=== PATIENT | male | born 1960 | race African-American/Black ===

== ENCOUNTER 2019-12-25 18:53 | Inpatient (IN) | payer OTHER, SELFPAY ==
--- NOTE | ~2019-12-25 | XR_ITS ---
EXAMINATION: XR abdomen NG/feed tube insert DATE: 12/26/2019 18:02 INDICATION: Nasogastric tube placement. TECHNIQUE: An upright view of the abdomen was obtained. COMPARISON: CT abdomen and pelvis 12/25/2019 FINDINGS: The lower abdomen is excluded. There are multiple dilated loops of small bowel. The colon i s decompressed. The nasogastric tube tip is in the stomach. Surgical clips in the right upper quadran t are likely from cholecystectomy. IMPRESSION: 1. Nasogastric tube tip in the stomach. 2. Small bowel obstruction. Reviewed, dictated and finalized at location A. ICAL NURSE
--- NOTE | ~2019-12-25 | CT_ITS ---
EXAMINATION: CT abdomen pelvis w con DATE: 12/25/2019 20:17 INDICATION: Small bowel obstruction. TECHNIQUE: Computed tomography (CT) of the abdomen and pelvis was performed with 100 mL Omnipaque 350 intravenous contrast. Automated exposure control and iterative reconstruction technique were employe d. The dose-length product was 1463.53 mGy-cm. COMPARISON: None. FINDINGS: The visualized portions of the lung bases demonstrate mild atelectasis. No pleural effusion . The heart size is normal. There are coronary artery calcifications. No pericardial effusion. The li jacinto and spleen are normal. There are changes of cholecystectomy. The pancreas and adrenal glands are normal. There is a 1.3 cm cyst in right kidney. There is a 4.4 cm mass in left kidney measuring soft tissue attenuation. There are multiple dilated and fluid-filled loops of small bowel with transition point in the distal ileum. The colon is decompressed. There are no pathologically enlarged lymph node s. There is no free intraperitoneal fluid. There is prominent fat in left inguinal canal that may be a hernia. There is moderate lumbar spondylosis. IMPRESSION: 1. Small bowel obstruction with transition point in the distal ileum. 2. 4.4 cm kidney mass, which may be a hemorrhagic cyst or a solid neoplasm. Abdomen CT without and wi th contrast is recommended. Reviewed, dictated and finalized at location A. NE PIPEFITTER HELPER IMPRESSION: 1. Small bowel obstruction with transition point in the distal ileum. 2. 4.4 cm kidney mass, which may be a hemorrhagic cyst or a solid neoplasm. Abd omen CT without and with contrast is recommended.
--- NOTE | ~2019-12-25 | CT_ITS ---
EXAMINATION: CT abdomen wo/w con DATE: 12/28/2019 14:30 INDICATION: Left kidney mass TECHNIQUE: Computed tomography (CT) of the abdomen was performed without intravenous contrast. CT of the abdomen was then performed with a total of 100 mL Omnipaque 350 intravenous contrast. The dose-le ngth product (DLP) was 1895.51 mGy-cm. Automated exposure control and iterative reconstruction techni que were employed. COMPARISON: 12/25/2019 FINDINGS: Minimal dependent atelectasis is present in the lung bases. The heart size is normal. The n asogastric tube is in the stomach. Enteric contrast material from recent small bowel follow-through i s seen in dilated loops of small bowel. The gallbladder is surgically absent. The liver, spleen, panc reas, and adrenal glands are normal. There is a 4.4 cm enhancing mass at the posterolateral aspect of the left mid kidney. A 12 mm lesion in the left kidney upper pole is too small to characterize but l ikely represents a cyst. There is a 1.2 cm cyst of the right kidney. No pathologically enlarged abdom inal lymph nodes are identified. There is no free intraperitoneal gas. There is moderate lumbar spond ylosis. IMPRESSION: 1. Enhancing 4.4 cm left kidney mass, consistent with solid neoplasm such as renal cell carcinoma. 2. Small bowel obstruction. Reviewed, dictated and finalized at location A. ING SYSTEM INSTALLER IMPRESSION: 1. Enhancing 4.4 cm left kidney mass, consistent with solid neoplasm such as re nal cell carcinoma. 2. Small bowel obstruction.
--- NOTE | ~2019-12-25 | XR_ITS ---
EXAMINATION: XR abdomen/kub 1V DATE: 12/28/2019 06:21 INDICATION: Small bowel obstruction. TECHNIQUE: A supine view of the abdomen on 2 radiographs was obtained. COMPARISON: Abdomen radiograph 12/26/2019, CT abdomen and pelvis 12/25/2019 FINDINGS: There are multiple dilated loops of small bowel containing oral contrast. The nasogastric t ube tip is in the distal stomach. Surgical clips in the right upper quadrant are likely from cholecys tectomy. There is a surgical clip in the pelvis. The colon is decompressed. IMPRESSION: 1. Small bowel obstruction. Reviewed, dictated and finalized at location A. ATIONAL THERAPY TEACHER IMPRESSION: 1. Small bowel obstruction.
--- NOTE | ~2019-12-25 | XR_ITS ---
EXAMINATION: XR sm bowel follow through DATE: 12/26/2019 13:56 INDICATION: Small bowel obstruction TECHNIQUE: Care Asst radiograph(s) of the abdomen was/were obtained. Water-soluble oral contrast was admi nistered, and sequential radiographs of the abdomen were obtained. Fluoroscopy was not performed. COMPARISON: CT from yesterday FINDINGS: Care Asst image demonstrates multiple dilated loops of small bowel. Contrast from earlier CT ex amination opacifies the urinary bladder. Contrast progresses to the area of the right lower quadrant after approximately two hours but is without significant progress at the four hour time point. IMPRESSION: 1. Small bowel obstruction. Reviewed, dictated and finalized at location A. ISITION MANAGER IMPRESSION: 1. Small bowel obstruction.
--- NOTE | ~2019-12-25 | XR_ITS ---
EXAMINATION: XR abdomen/kub 1V EXAM DATE: 12/29/2019 08:46 INDICATION: Small bowel obstruction follow-up. Left renal mass. TECHNIQUE: Frontal projection(s) of the abdomen for interpretation. Correlation is made to CT scan fr om yesterday. FINDINGS: Multiple loops of severely distended small bowel which are opacified with the contrast was administered on 12/26/2019. No contrast identified in the colon. Feeding tube in position. There are cholecystectomy clips. IMPRESSION: Small bowel obstruction. Reviewed, dictated and finalized at location A. LE END TENONER SETTER IMPRESSION: Small bowel obstruction.
[2019-12-25 18:55] VITALS: BP 104/80; PULSE 114; RESP 18; TEMP 36.1; O2SAT 97
[2019-12-25 19:40] VITALS: BP 118/82; PULSE 96; RESP 20; O2SAT 97
[2019-12-25 19:47] LABS: Basophils Percent Auto 0.2 % (0.2-1.2); Eosinophils Absolute Auto 0.1 K/mm3 (0-0.3); Eosinophils Percent Auto 1.1 % (0-4.4); Hematocrit 48.7 % (42.0-52.0); Hemoglobin 16.7 g/dL (14.0-18.0); Immature Granulocyte Absolute 0.03 K/mm3 (0.00-0.031); Immature Granulocyte Percent A 0.3 % (0-0.5); Lymphocytes Absolute Auto 1.46 K/mm3 (0.9-3.2); Lymphocytes Percent Auto 15.6 % (18.3-44.2); Mean Corpuscular HGB Conc 34.3 g/dl (32-36); Mean Corpuscular Hemoglobin 30.2 pg (26-34); Mean Corpuscular Volume 88.1 fl (80-100); Mean Platelet Volume 9.9 fl (7.4-10.4); Monocytes Absolute Auto 0.9 K/mm3 (0.1-0.6); Monocytes Percent Auto 9.9 % (2.6-8.5); Neutrophils Absolute Auto 6.8 K/mm3 (1.3-6.7); Neutrophils Percent Auto 72.9 % (45.5-73.1); Platelet Count Result 299 k/mm3 (150-375); Red Blood Count 5.53 M/mm3 (4.6-6.20); Red Cell Distribution Width 13.2 % (11.5-14.5); White Blood Count 9.4 K/mm3 (4.5-10.0)
[2019-12-25 19:58] LABS: Alanine Aminotransferase 12 U/L (4-50); Albumin Level 4.7 g/dL (3.5-5.1); Alkaline Phosphatase 133 U/L (38-126); Anion Gap 15 mmol/L (8-16); Aspartate Amino Transferase 24 U/L (17-59); Bilirubin,Total 2.3 mg/dL (0.2-1.3); Blood Urea Nitrogen 21 mg/dL (9-20); Calcium 10.5 mg/dL (8.4-10.2); Carbon Dioxide 27 mmol/L (22-30); Chloride 99 mmol/L (98-107); Estimated CRCL calculation 84 ml/min; Estimated Glomerular Filt Rate > 60; Glucose 176 mg/dL (75-110); Lipase 166 U/L (23-300); Potassium 4.1 mmol/L (3.4-5.0); Sodium 141 mmol/L (137-145)
--- NOTE | 2019-12-25 20:39 | ED.ABDPAIN ---
HPI - Abdominal Pain General Chief Complaint: Abdominal Pain Stated Complaint: stomach pain Time Seen by Provider: 12/25/19 19:09 Source: patient and family Mode of arrival: ambulatory Limitations: no limitations History of Present Illness HPI narrative: 59-year-old with a history of hypertension, diabetes, hyperlipidemia history of benign tumor resection from the abdomen [address] [facility] here with complaints of abdominal pain, nausea since this morning. Patient states that he did not have any bowel movement for past few days. He denies any fever or chills. No previous episodes of bowel obstruction MD elicited complaint: abdominal pain Pertinent past history: constipation Pain Consistency: constant Location: epigastric Severity: moderate Quality: cramping Migration to: no migration Relieving factors: nothing Related Data Home Medications Medication Instructions Recorded Confirmed blood sugar diagnostic #10 each 06/23/19 10/09/19 blood-glucose meter #1 each 06/23/19 10/09/19 empagliflozin 25 mg tablet 25 mg PO DAILY 06/23/19 10/09/19 insulin glargine U-300 conc 300 See Rx Instructions SUB-Q DAILY 10/09/19 10/09/19 unit/mL (1.5 mL) subcutaneous pen Allergies Allergy/AdvReac Type Severity Reaction Status Date / Time No Known Allergies Allergy Verified 12/25/19 18:55 Review of Systems Review of Systems: All systems reviewed & are unremarkable except as noted in HPI and below Constitutional: Constitutional: Reports no additional constitutional complaints Eyes: Eyes: Reports no additional eye complaints ENT: Reports system reviewed and no additional complaints, except as documented Cardiovascular: Cardiovascular: Reports no additional cardiovascular complaints Respiratory: Respiratory: Reports no additional respiratory complaints Gastrointestinal: Gastrointestinal: Reports as per HPI Musculoskeletal: Musculoskeletal: Reports no additional musculoskeletal complaints [facility] Past Medical History Medical History (Updated 12/25/19 @ 20:47 by Sal Turner MD) Bilateral leg edema BMI 39.0-39.9,adult Colon cancer screening Edema of right lower leg History of benign neoplasm of small intestine History of femur fracture History of fracture of right ankle Hyperlipidemia Hypertension Obesity Primary hypertension Prostate cancer screening Tumor cells, benign Type 2 diabetes mellitus Type 2 diabetes mellitus with hyperglycemia Surgical History Surgical History H/O facial fracture repair History of cholecystectomy Family History Family History Father Hypertension Other Diabetes mellitus Social History Social History Smoking status: Never smoker Second hand tobacco smoke exposure: No Alcohol intake: never Substance use: never Substance use type: does not use Gender identity (if verbalized by the patient): Male Spiritual care concerns: Yes (Mormonism.) Agree to blood products: Yes Exam Narrative: Exam Narrative: GENERAL: Well-appearing, , and in no acute distress. HEAD: Normocephalic, atraumatic. EYES: PERRLA and EOMI. NECK: Supple. CHEST: Clear to auscultation. No respiratory distress. HEART: Regular rate and rhythm. No murmur heard. Normal peripheral pulses. ABDOMEN: Midline surgical scar, distended, epigastric tenderness, sluggish bowel sounds EXTREMITIES: Normal range of motion. chronic edema of the right leg SKIN: Warm, dry, no rash. NEURO: No focal deficits. Alert and oriented x3. PSYCH: Normal mood and affect. Course Course Emergency Course: Inform patient about his lab work. He has no further episodes of nausea or vomiting. I discussed with Dr. Graf who recommended to admit to the hospitalist and they will be a consult. Vital Signs Vital signs: Vital Signs Temperature 36.1 C L
[2019-12-25 22:06] VITALS: BP 106/82; PULSE 110; RESP 20; O2SAT 95
--- NOTE | 2019-12-25 22:10 | PM.IMHP ---
H&P: HPI History of Present Illness Date/Time: 12/25/19 22:10 Chief complaint: SBO Narrative: This is a pleasant 59 year old Diabetic with known HTN and hyperlipidemia who presented to the hospital with a complaint of diffuse abdominal pain, distension, nausea, and vomiting over the past 2 days. He started to notice that he had abdominal pain, nausea, and vomiting after he ate some fried rice on Sunday evening. Since then he has had a difficult time keeping any food or fluids down and gets nauseated and vomits with any food intake. He denies any past history of bowel obstructions although his history is significant for an extensive previous bowel surgery of a large abd tumor removal [address] abd/Pelvis demonstrated a small bowel obstruction with transition point in the distal ileum. He last had nausea and vomiting earlier today but currently denies any nausea. He also denies any fever, chills, chest pain, shortness of breath, cough, headache, dysuria, hematuria, diarrhea or rectal bleeding. His last bowel movement was earlier today and was a small amount. ER provider has consulted General Surgery. No other complaints. Review of Systems Review of Systems: All systems reviewed & are unremarkable except as noted in HPI and below PMFSH Past Medical History Medical History Bilateral leg edema BMI 39.0-39.9,adult Colon cancer screening Edema of right lower leg History of benign neoplasm of small intestine History of femur fracture History of fracture of right ankle Hyperlipidemia Hypertension Obesity Primary hypertension Prostate cancer screening Surgical abdomen Tumor cells, benign Type 2 diabetes mellitus Type 2 diabetes mellitus with hyperglycemia Surgical History Surgical History H/O facial fracture repair History of ankle surgery History of cholecystectomy Family History Family History Father Hypertension Other Diabetes mellitus Social History Social History Smoking status: Never smoker Second hand tobacco smoke exposure: No Alcohol intake: never Substance use: never Substance use type: does not use Gender identity (if verbalized by the patient): Male Sexual Orientation (if Verbalized by the Patient): Straight or Heterosexual Spiritual care concerns: No Agree to blood products: Yes Meds Home Medications and Allergies Home Medications Medication Instructions Recorded Confirmed Type furosemide 20 mg tablet 20 mg PO QAM #90 tablet 03/21/19 12/25/19 Rx hydrochlorothiazide 25 mg tablet 25 mg PO DAILY #90 tablet 03/31/19 12/25/19 Rx losartan 100 mg tablet 100 mg PO DAILY #90 tablet 03/31/19 12/25/19 Rx atorvastatin 40 mg tablet 40 mg PO DAILY #90 tablet 04/23/19 12/25/19 Rx blood sugar diagnostic #10 each 06/23/19 12/25/19 History blood-glucose meter #1 each 06/23/19 12/25/19 History empagliflozin 25 mg tablet 25 mg PO DAILY 06/23/19 12/25/19 History insulin glargine U-300 conc 300 See Rx Instructions SUB-Q DAILY 10/09/19 12/25/19 History unit/mL (1.5 mL) subcutaneous pen pen needle, diabetic 31 gauge x #30 each 10/15/19 12/25/19 Rx / metoprolol tartrate 50 mg tablet 50 mg PO BID #180 tablet 10/28/19 12/25/19 Rx semaglutide 0.25 mg SUB-Q WEEKLY 90 Days #3 ml 11/10/19 12/25/19 Rx metformin 1,000 mg PO BID 12/25/19 12/25/19 History Allergies Allergy/AdvReac Type Severity Reaction Status Date / Time No Known Allergies Allergy Verified 12/26/19 00:18 Vital Signs Vital Signs - 24 hr 12/25/19 18:55 12/25/19 19:40 12/25/19 22:06 Temperature 36.1 C L Pulse Rate 114 H 96 110 H Respiratory Rate 18 20 20 Blood Pressure 104/80 118/82 106/82 Pulse Oximetry 97 97 95 Exam Const: General: cooperative, no acute distress, alert and awake
[2019-12-25 22:55] VITALS: BP 118/73; PULSE 113; RESP 16; TEMP 37.4; O2SAT 97
--- NOTE | 2019-12-25 22:59 | ADMGEN ---
This patient, Guru Jones, was admitted to 2 Medical Room 242-01. Patient/family oriented to hospital policies and general routines including ID bracelet, bed and alarms, visiting hours, pain management, procedures, bathroom and other care routines, personal items, smoking policy, room service/diet, and visiting hours. Information on how to activate the Rapid Response Team has been discussed. Patient/Family are encouraged to report perceived risks to care and to ask questions if they do not understand what they are told or what they should do.
[2019-12-25 23:11] VITALS: BMI 37.4
[2019-12-25] MEDS: LACTATED RINGERS 1,000 ML 125 ML IV CONT (23:22)
[2019-12-26] VITALS (9 sets, daily range): BP systolic 119–142; BP diastolic 69–82; PULSE 92–113; RESP 16–23; TEMP 36.2–37; O2SAT 94–100
[2019-12-26 00:07] LABS: Glucose Point of Care 142 (65-105)
[2019-12-26 05:45] LABS: Glucose Point of Care 135 (65-105)
[2019-12-26 06:12] LABS: Basophils Percent Auto 0.4 % (0.2-1.2); Eosinophils Absolute Auto 0.1 K/mm3 (0-0.3); Eosinophils Percent Auto 1.6 % (0-4.4); Hematocrit 47.5 % (42.0-52.0); Immature Granulocyte Absolute 0.02 K/mm3 (0.00-0.031); Immature Granulocyte Percent A 0.3 % (0-0.5); Lymphocytes Absolute Auto 1.79 K/mm3 (0.9-3.2); Lymphocytes Percent Auto 23.6 % (18.3-44.2); Mean Corpuscular HGB Conc 33.7 g/dl (32-36); Mean Corpuscular Hemoglobin 29.6 pg (26-34); Mean Platelet Volume 10.4 fl (7.4-10.4); Monocytes Percent Auto 12.9 % (2.6-8.5); Neutrophils Absolute Auto 4.6 K/mm3 (1.3-6.7); Neutrophils Percent Auto 61.2 % (45.5-73.1); Platelet Count Result 279 k/mm3 (150-375); Red Cell Distribution Width 13.3 % (11.5-14.5); White Blood Count 7.6 K/mm3 (4.5-10.0)
[2019-12-26 06:22] LABS: Bilirubin Indirect 2.3 mg/dL (0-1.1); Bilirubin,Total 2.2 mg/dL (0.2-1.3)
[2019-12-26 06:27] LABS: Anion Gap 9 mmol/L (8-16); Blood Urea Nitrogen 26 mg/dL (9-20); Calcium 10.1 mg/dL (8.4-10.2); Carbon Dioxide 32 mmol/L (22-30); Chloride 99 mmol/L (98-107); Estimated CRCL calculation 87 ml/min; Estimated Glomerular Filt Rate > 60; Glucose 129 mg/dL (75-110); Sodium 140 mmol/L (137-145)
[2019-12-26] MEDS: LACTATED RINGERS 1,000 ML 125 ML IV CONT ×2 (07:20→20:32)
--- NOTE | 2019-12-26 09:07 | PM.CNGS ---
Assessment and Plan Assessment and plan (1) SBO (small bowel obstruction): Code(s): K56.609 - Unspecified intestinal obstruction, unspecified as to partial versus complete obstruction Status: Acute Assessment and Plan: cont bowel rest, exam benign, will get SBS for further eval (2) Renal mass: Code(s): N28.89 - Other specified disorders of kidney and ureter Status: Acute Assessment and Plan: will likely need further imaging in the future (3) BMI 39.0-39.9,adult: Code(s): Z68.39 - Body mass index [BMI] 39.0-39.9, adult Status: Acute Assessment and Plan: dietary and lifestyle modifications (4) Type 2 diabetes mellitus with hyperglycemia: Qualifiers: Diabetes mellitus superintendent container terminal insulin use: with superintendent container terminal use Qualified Code(s): E11.65 - Type 2 diabetes mellitus with hyperglycemia; Z79.4 - terminal operator (current) use of insulin Code(s): E11.65 - Type 2 diabetes mellitus with hyperglycemia Status: Acute Assessment and Plan: management per primary team (5) Hypertension: Qualifiers: Hypertension type: unspecified Qualified Code(s): I10 - Essential (primary) hypertension Code(s): I10 - Essential (primary) hypertension Status: Chronic Assessment and Plan: stable, management per primary team History of Present Illness Consult details Consult date: 12/26/19 Reason for consult: abdominal pain Requesting physician: Alexandre Mariee MD Narrative: Pt is a 59 y/o M presenting c 3 d h/o crampy abd pain, N/V. Pt reports pain comes in waves and is worse after eating/drinking. Pt reports multiple bouts of N/V after eating but seems to be improved since admit. Pt reports he has had small bowel movt (last yest) but not normal for him. Pt reports very little flatus. Pt also c/o bloating, fullness. Pt reports previous colon resection for benign mass and cholecystectomy. Review of Systems Constitutional: Constitutional: Denies anorexia, Denies chills, Denies fatigue, Denies fever(s), Denies lethargy, Denies malaise, Reports poor appetite, Denies weakness, Denies weight gain and Denies weight loss Eyes: Eyes: Reports no additional eye complaints ENT: Reports system reviewed and no additional complaints, except as documented Cardiovascular: Cardiovascular: Reports no additional cardiovascular complaints Respiratory: Respiratory: Reports no additional respiratory complaints Gastrointestinal: Gastrointestinal: Reports abdominal pain, Reports belching, Reports bloating, Reports change in bowel habits, Reports change in stool character, Reports constipation, Reports GI cramping, Reports heartburn, Reports nausea and Reports vomiting Genitourinary: Genitourinary: Reports no additional male genitourinary complaints Musculoskeletal: Musculoskeletal: Reports no additional musculoskeletal complaints Integumentary/Breasts: Skin/Breast: Reports system reviewed and no additional complaints, except as docu Neurologic: Reports system reviewed and no additional complaints, except as documented Psychiatric: Psychiatric: Reports no additional psychiatric complaints Endocrine: Endocrine: Reports no additional endocrine complaints Hematologic/Lymphatic: Hematologic/Lymphatic: Reports no additional hematologic/lymphatic complaints Allergic/Immunologic: Allergic/Immunologic: Reports no additional allergic/immunologic complaints PMFSH Past Medical History Medical History Bilateral leg edema BMI 39.0-39.9,adult Colon cancer screening Edema of right lower leg History of benign neoplasm of small intestine History of femur fracture History of fracture of right ankle Hyperlipidemia Hypertension Obesity Primary hypertension Prostate cancer screening Surgical abdomen Tumor cells, benign Type 2 diabetes mellitus Type 2 diabetes mellitus with hyperglycemia Surgical History Surgical His
[2019-12-26 11:49] LABS: Glucose Point of Care 138 (65-105)
[2019-12-26] MEDS: ONDANSETRON INJ 4 MG/2 ML VIAL IV PUSH (12:00)
--- NOTE | 2019-12-26 16:16 | PM.IMPN ---
Progress Note: A&P Assessment and Plan (1) SBO (small bowel obstruction): Code(s): K56.609 - Unspecified intestinal obstruction, unspecified as to partial versus complete obstruction Status: Acute Assessment and Plan: admit to med surg, NPO, bowel rest, IV fluids. pain control as needed. antiemetics. continue conservatively management with NG tube to suction (2) Hyperbilirubinemia: Code(s): E80.6 - Other disorders of bilirubin metabolism Status: Acute Assessment and Plan: consukt to monitor lfts and bilirubin levels (3) Renal mass: Code(s): N28.89 - Other specified disorders of kidney and ureter Status: Acute Assessment and Plan: The patient will need a follow up CT abd/pelvis w/ contrast to evaluate this incidental renal mass that was found today. (4) Type 2 diabetes mellitus: Qualifiers: Diabetes mellitus mcc insulin use: without mcc use Diabetes mellitus complication status: without complication Qualified Code(s): E11.9 - Type 2 diabetes mellitus without complications Code(s): E11.9 - Type 2 diabetes mellitus without complications Status: Chronic Assessment and Plan: Accuchecks, SSI Coverage, hypoglycemic protocol. (5) Hypertension: Qualifiers: Hypertension type: unspecified Qualified Code(s): I10 - Essential (primary) hypertension Code(s): I10 - Essential (primary) hypertension Status: Chronic Assessment and Plan: stable. Monitor blood pressure (6) Hyperlipidemia: Qualifiers: Hyperlipidemia type: unspecified Qualified Code(s): E78.5 - Hyperlipidemia, unspecified Code(s): E78.5 - Hyperlipidemia, unspecified Status: Chronic Assessment and Plan: Resume statin therapy when the patient is eating again. Additional Plan Subjective Date/time seen: 12/26/19 16:16 Interval history: 59 year old Diabetic with known HTN and hyperlipidemia who presented to the hospital with a complaint of diffuse abdominal pain, distension, nausea, and vomiting over the past 2 days. Pt seen by surgery and had a small bowel follow through series today shows- SBO. Ct scan shows -Small bowel obstruction with transition point in the distal ileum. 2. 4.4 cm kidney mass, which may be a hemorrhagic cyst or a solid neoplasm Review of Systems Review of Systems: All systems reviewed & are unremarkable except as noted in HPI and below Exam Const: General: cooperative, no acute distress, alert and awake Nutritional Appearance: obese Orientation/consciousness: patient oriented x3 Cardio: Rate: regular rate Rhythm: regular rhythm Heart sounds: no murmurs GI: Inspection: distended Auscultation: absent bowel sounds Skin: General skin exam: normal color and no rashes or lesions noted Neuro: General: patient oriented x3 Cranial nerves: Yes CN's II-XII intact bilaterally and Yes Equal, round and reactive pupils present Speech: normal speech Motor exam (neuro): 5/5 motor strength present throughout Sensory Exam: normal sensation Extrem: General: normal to inspection and no edema Right lower extremity: lower leg (Chronic edema++ ) Psych: Mental Status: mental status grossly normal Affect: normal affect Objective Data Vital Signs Vital Signs: Vital Signs - 24 hr 12/25/19 18:55 12/25/19 19:40 12/25/19 22:06 Temperature 36.1 C L Pulse Rate 114 H 96 110 H Respiratory Rate 18 20 20 Blood Pressure 104/80 118/82 106/82 Pulse Oximetry 97 97 95 12/25/19 22:55 12/26/19 00:31 12/26/19 00:32 Temperature 37.4 C Pulse Rate 113 H 96 96 Respiratory Rate 16 Blood Pressure 118/73 Pulse Oximetry 97 96 96 12/26/19 02:00 12/26/19 05:47 12/26/19 08:25 Temperature 37.0 C 36.7 C Pulse Rate 92 92 Respiratory Rate 18 16 Blood Pressure 119/69 131/82 Pulse Oximetry 99 100 96 12/26/19 11:23 12/26/19 14:00 Temperature 36.8 C 36.6 C Pulse R
[2019-12-26 21:03] LABS: Glucose Point of Care 173 (65-105)
[2019-12-26 21:03] LABS: Glucose Point of Care 177 (65-105)
[2019-12-27] VITALS: BP 114/76; PULSE 84; RESP 20; TEMP 36.6; O2SAT 100
[2019-12-27 04:00] VITALS: BP 141/82; PULSE 95; RESP 20; TEMP 36.4; O2SAT 95
[2019-12-27] MEDS: LACTATED RINGERS 1,000 ML 125 ML IV CONT ×3 (05:30→21:52)
[2019-12-27 06:01] LABS: Glucose Point of Care 154 (65-105)
[2019-12-27 06:13] LABS: Hematocrit 47.6 % (42.0-52.0); Mean Corpuscular HGB Conc 33.6 g/dl (32-36); Mean Corpuscular Hemoglobin 29.2 pg (26-34); Mean Corpuscular Volume 86.9 fl (80-100); Mean Platelet Volume 10.4 fl (7.4-10.4); Platelet Count Result 310 k/mm3 (150-375); Red Blood Count 5.48 M/mm3 (4.6-6.20); Red Cell Distribution Width 13.2 % (11.5-14.5); White Blood Count 6.4 K/mm3 (4.5-10.0)
[2019-12-27 06:47] LABS: Anion Gap 12 mmol/L (8-16); Blood Urea Nitrogen 40 mg/dL (9-20); Calcium 10.2 mg/dL (8.4-10.2); Carbon Dioxide 33 mmol/L (22-30); Chloride 99 mmol/L (98-107); Estimated CRCL calculation 75 ml/min; Estimated Glomerular Filt Rate > 60; Glucose 153 mg/dL (75-110); Potassium 3.8 mmol/L (3.4-5.0); Sodium 144 mmol/L (137-145)
--- NOTE | 2019-12-27 09:20 | PM.PNGS ---
Progress Note: A&P Assessment and Plan (1) SBO (small bowel obstruction): Code(s): K56.609 - Unspecified intestinal obstruction, unspecified as to partial versus complete obstruction Status: Acute Assessment and Plan: will cont bowel rest, NG decompression, recheck AXR in am, encourage ambulation (2) Type 2 diabetes mellitus: Qualifiers: Diabetes mellitus correction insulin use: without roasterman use Diabetes mellitus complication status: without complication Qualified Code(s): E11.9 - Type 2 diabetes mellitus without complications Code(s): E11.9 - Type 2 diabetes mellitus without complications Status: Chronic Assessment and Plan: stable, mgmt per primary (3) Hypertension: Qualifiers: Hypertension type: unspecified Qualified Code(s): I10 - Essential (primary) hypertension Code(s): I10 - Essential (primary) hypertension Status: Chronic Assessment and Plan: stable, mgmt per primary Subjective Subjective Date/Time Seen: 12/27/19 09:20 feels better this am, no further N/V, still no bowel fxn Review of Systems Constitutional: Constitutional: Denies chills, Reports fatigue and Denies fever(s) Cardiovascular: Cardiovascular: Reports no additional cardiovascular complaints Respiratory: Respiratory: Reports no additional respiratory complaints Gastrointestinal: Gastrointestinal: Denies abdominal pain, Denies belching, Reports bloating, Reports constipation, Reports GI cramping, Reports heartburn, Reports nausea and Reports vomiting Exam Const: General: cooperative and no acute distress Resp: Effort & Inspection: normal respiratory effort Auscultation: clear to auscultation bilaterally Cardio: Jugular venous distension: no JVD Rate: regular rate Rhythm: regular rhythm GI: Inspection: normal to inspection, distended and incision GI Palp: Yes Soft to palpation, No Tenderness to palpation present (GI), No Guarding due to palpation present (GI) and No Rigid due to palpation Auscultation: Hypoactive bowel sounds present Other: sl dist, NT, hypoactive bs Objective Data Vital Signs Vital Signs: Vital Signs - 24 hr 12/26/19 11:23 12/26/19 14:00 12/26/19 19:25 Temperature 36.8 C 36.6 C 36.2 C L Pulse Rate 113 H 111 H 94 Respiratory Rate 23 H 21 H 17 Blood Pressure 142/82 H 123/74 133/82 Pulse Oximetry 97 95 97 12/26/19 20:00 12/27/19 00:00 12/27/19 04:00 Temperature 36.6 C 36.6 C 36.4 C Pulse Rate 102 H 84 95 Respiratory Rate 20 20 20 Blood Pressure 120/78 114/76 141/82 H Pulse Oximetry 94 100 95 Intake/Output Intake/Output: Intake & Output 12/24/19 12/25/19 12/26/19 12/27/19 23:59 23:59 23:59 23:59 Intake Total 2210 1000 Output Total 3125 2250 Balance -915 -1250 Meds/Results Medications: Active Medications Generic Name Dose Route Start Last Admin Trade Name Freq PRN Reason Stop Dose Admin Dextrose 12.5 gm 12/25/19 22:36 Dextrose 50% 25 Gm/50 Ml Syringe IV PUSH PRN PRN Hypoglycemia Protocol Glucagon 1 mg 12/25/19 22:36 Glucagon For Inj 1 Mg Vial IM PRN PRN Hypoglycemia Protocol Hydromorphone HCl 0.5 mg 12/25/19 21:10 Hydromorphone Hcl Inj (*Crx) 1 Mg/Ml Syr IV PUSH Q4H PRN Pain Rated 7-10 Lactated Ringer's 1,000 mls @ 125 mls/hr 12/25/19 21:10 12/27/19 05:30 Lr - Lactated Ringers Iv IV CONT 125 mls/hr .Q8H MACK Administration Dextrose 1,000 mls @ 100 mls/hr 12/25/19 22:36 Dextrose 5% 1,000 Ml IVPB PRN PRN Hypoglycemia Protocol Insulin Aspart 2 - 5 units 12/26/19 00:00 12/27/19 05:31 Insulin Aspart (*Bkc) 100 Units/Ml SUB-Q Not Given Q6HR MACK Protocol Ondansetron HCl 4 mg 12/25/19 21:10 12/26/19 12:00 Ondansetron Inj 4 Mg/2 Ml Vial IV PUSH 4 mg Q4H PRN Administration Nausea Radiology Results: ITS Impressions Abdomen/Pelvis CT 12/25/19 20:19 IMPRESSION: 1. Small bowel
[2019-12-27 10:00] VITALS: BP 154/87; PULSE 98; RESP 14; TEMP 36.4; O2SAT 99
--- NOTE | 2019-12-27 11:36 | PM.IMPN ---
Progress Note: A&P Assessment and Plan (1) SBO (small bowel obstruction): Code(s): K56.609 - Unspecified intestinal obstruction, unspecified as to partial versus complete obstruction Status: Acute Assessment and Plan: admit to med surg, NPO, bowel rest, IV fluids. pain control as needed. antiemetics. continue conservatively management with NG tube and bowel rest. encourage ambulation. if conservative treatments do not help pt will need to have surgery. surgery team rounding on patient. (2) Hyperbilirubinemia: Code(s): E80.6 - Other disorders of bilirubin metabolism Status: Acute Assessment and Plan: continue to monitor lfts and bilirubin levels (3) Renal mass: Code(s): N28.89 - Other specified disorders of kidney and ureter Status: Acute Assessment and Plan: The patient will need a follow up CT abd/pelvis w/ contrast to evaluate this incidental renal mass that was found, consult urology here. (4) Type 2 diabetes mellitus: Qualifiers: Diabetes mellitus alf insulin use: without exterminator termite use Diabetes mellitus complication status: without complication Qualified Code(s): E11.9 - Type 2 diabetes mellitus without complications Code(s): E11.9 - Type 2 diabetes mellitus without complications Status: Chronic Assessment and Plan: Accuchecks, SSI Coverage, hypoglycemic protocol. pt is npo (5) Hypertension: Qualifiers: Hypertension type: unspecified Qualified Code(s): I10 - Essential (primary) hypertension Code(s): I10 - Essential (primary) hypertension Status: Chronic Assessment and Plan: stable. Monitor blood pressure (6) Hyperlipidemia: Qualifiers: Hyperlipidemia type: unspecified Qualified Code(s): E78.5 - Hyperlipidemia, unspecified Code(s): E78.5 - Hyperlipidemia, unspecified Status: Chronic Assessment and Plan: Resume statin therapy when the patient is eating again. Additional Plan Subjective Date/time seen: 12/27/19 11:36 Interval history: 59 year old Diabetic with known HTN and hyperlipidemia who presented to the hospital with a complaint of diffuse abdominal pain, distension, nausea, and vomiting over the past 2 days. Pt seen by surgery and had a small bowel follow through series today shows- SBO. Ct scan shows -Small bowel obstruction with transition point in the distal ileum. 2. 4.4 cm kidney mass, which may be a hemorrhagic cyst or a solid neoplasm. kub today shows sbo. Review of Systems Review of Systems: All systems reviewed & are unremarkable except as noted in HPI and below Exam Const: General: cooperative, no acute distress, alert and awake Nutritional Appearance: obese Orientation/consciousness: patient oriented x3 HENMT: Head: normal to inspection General nose exam: Normal external nose present Face and sinus: normal facial exam Mouth: Yes Normal oral and palatal mucosa present and Yes oropharynx normal Eyes: Pupils: Equal, round and reactive pupils present EOM: EOMs intact bilaterally Neck: Neck: supple and no JVD Thyroid: thyroid normal Lymphatic: lymphadenopathy not noted Resp: Effort & Inspection: normal respiratory effort Auscultation: clear to auscultation bilaterally Cardio: Rate: regular rate Rhythm: regular rhythm Heart sounds: no murmurs GI: Inspection: distended Auscultation: absent bowel sounds Skin: General skin exam: normal color and no rashes or lesions noted Neuro: General: patient oriented x3 Cranial nerves: Yes CN's II-XII intact bilaterally and Yes Equal, round and reactive pupils present Speech: normal speech Motor exam (neuro): 5/5 motor strength present throughout Sensory Exam: normal sensation Extrem: General: normal to inspection and no edema Right lower extremity: lower leg (Chronic edema++ ) Psych: Mental Status: mental status grossly normal Affect: normal affect Objecti
[2019-12-27 11:47] LABS: Glucose Point of Care 139 (65-105)
[2019-12-27 14:00] VITALS: BP 135/82; PULSE 90; RESP 14; TEMP 36.7; O2SAT 100
[2019-12-27 18:00] VITALS: BP 124/90; PULSE 119; RESP 14; TEMP 36.6; O2SAT 98
[2019-12-27 18:33] LABS: Glucose Point of Care 163 (65-105)
[2019-12-27 20:00] VITALS: BP 140/78; PULSE 90; RESP 20; TEMP 36.4; O2SAT 99
[2019-12-27 22:06] LABS: Glucose Point of Care 151 (65-105)
[2019-12-28] VITALS (7 sets, daily range): BP systolic 133–152; BP diastolic 76–99; PULSE 67–116; RESP 17–22; TEMP 36.1–37.1; O2SAT 95–100
[2019-12-28] MEDS: LACTATED RINGERS 1,000 ML 125 ML IV CONT ×2 (05:30→13:45)
[2019-12-28 06:15] LABS: Basophils Percent Auto 0.7 % (0.2-1.2); Eosinophils Absolute Auto 0.2 K/mm3 (0-0.3); Eosinophils Percent Auto 2.8 % (0-4.4); Hematocrit 48.6 % (42.0-52.0); Hemoglobin 15.9 g/dL (14.0-18.0); Immature Granulocyte Absolute 0.01 K/mm3 (0.00-0.031); Immature Granulocyte Percent A 0.2 % (0-0.5); Lymphocytes Absolute Auto 2.03 K/mm3 (0.9-3.2); Lymphocytes Percent Auto 36.1 % (18.3-44.2); Mean Corpuscular HGB Conc 32.7 g/dl (32-36); Mean Corpuscular Hemoglobin 29.4 pg (26-34); Mean Platelet Volume 10.5 fl (7.4-10.4); Monocytes Absolute Auto 0.8 K/mm3 (0.1-0.6); Monocytes Percent Auto 13.5 % (2.6-8.5); Neutrophils Absolute Auto 2.6 K/mm3 (1.3-6.7); Neutrophils Percent Auto 46.7 % (45.5-73.1); Platelet Count Result 271 k/mm3 (150-375); White Blood Count 5.6 K/mm3 (4.5-10.0)
[2019-12-28 06:26] LABS: Alanine Aminotransferase 13 U/L (4-50); Albumin Level 4.2 g/dL (3.5-5.1); Alkaline Phosphatase 116 U/L (38-126); Anion Gap 10.99999 mmol/L (8-16); Aspartate Amino Transferase 27 U/L (17-59); Bilirubin,Total 1.6 mg/dL (0.2-1.3); Blood Urea Nitrogen 36 mg/dL (9-20); Calcium 10.1 mg/dL (8.4-10.2); Carbon Dioxide > 40 mmol/L (22-30); Chloride 98 mmol/L (98-107); Estimated CRCL calculation 80 ml/min; Estimated Glomerular Filt Rate > 60; Glucose 141 mg/dL (75-110); Potassium 3.7 mmol/L (3.4-5.0); Sodium 149 mmol/L (137-145)
[2019-12-28 07:21] LABS: Glucose Point of Care 144 (65-105)
--- NOTE | 2019-12-28 11:19 | PM.PNGS ---
Progress Note: A&P Assessment and Plan (1) SBO (small bowel obstruction): Code(s): K56.609 - Unspecified intestinal obstruction, unspecified as to partial versus complete obstruction Status: Acute Assessment and Plan: plan for OR in am if no improvement, cont NG decompression, bowel rest for now (2) Renal mass: Code(s): N28.89 - Other specified disorders of kidney and ureter Status: Acute Assessment and Plan: will get urology consult for further eval Subjective Subjective Date/Time Seen: 12/28/19 11:19 feels ok but still no bowel fxn, pt denies pain, N/V Review of Systems Constitutional: Constitutional: Denies anorexia, Denies chills, Denies fever(s), Denies headache(s), Denies weakness, Denies weight gain and Denies weight loss Cardiovascular: Cardiovascular: Reports no additional cardiovascular complaints Respiratory: Respiratory: Reports no additional respiratory complaints Gastrointestinal: Gastrointestinal: Denies abdominal pain, Denies belching, Reports bloating, Reports constipation, Denies nausea and Denies vomiting Exam Const: General: cooperative, comfortable and no acute distress Neck: Neck: normal visual inspection, full ROM and no lymphadenopathy Resp: Effort & Inspection: normal respiratory effort Auscultation: clear to auscultation bilaterally Cardio: Jugular venous distension: no JVD Rate: regular rate Rhythm: regular rhythm GI: Inspection: normal to inspection, distended and incision GI Palp: No abdominal tenderness, Yes Soft to palpation, No Tenderness to palpation present (GI) and No Guarding due to palpation present (GI) Objective Data Vital Signs Vital Signs: Vital Signs - 24 hr 12/27/19 14:00 12/27/19 18:00 12/27/19 20:00 Temperature 36.7 C 36.6 C 36.4 C L Pulse Rate 90 119 H 90 Respiratory Rate 14 14 20 Blood Pressure 135/82 124/90 140/78 Pulse Oximetry 100 98 99 12/28/19 00:00 12/28/19 04:00 12/28/19 09:16 Temperature 36.6 C 36.5 C 36.1 C L Pulse Rate 83 78 103 H Respiratory Rate 20 18 22 H Blood Pressure 133/82 135/76 150/97 H Pulse Oximetry 100 96 98 Intake/Output Intake/Output: Intake & Output 12/25/19 12/26/19 12/27/19 11/08/20 23:59 23:59 23:59 23:59 Intake Total 2210 3000 1000 Output Total 3209 2423 [id number] [employer] [facility] [phone] Meds/Results Medications: Active Medications Generic Name Dose Route Start Last Admin Trade Name Freq PRN Reason Stop Dose Admin Dextrose 12.5 gm 12/25/19 22:36 Dextrose 50% 25 Gm/50 Ml Syringe IV PUSH PRN PRN Hypoglycemia Protocol Glucagon 1 mg 12/25/19 22:36 Glucagon For Inj 1 Mg Vial IM PRN PRN Hypoglycemia Protocol Hydromorphone HCl 0.5 mg 12/25/19 21:10 Hydromorphone Hcl Inj (*Crx) 1 Mg/Ml Syr IV PUSH Q4H PRN Pain Rated 7-10 Lactated Ringer's 1,000 mls @ 125 mls/hr 12/25/19 21:10 12/28/19 05:30 Lr - Lactated Ringers Iv IV CONT 125 mls/hr .Q8H MACK Administration Dextrose 1,000 mls @ 100 mls/hr 12/25/19 22:36 Dextrose 5% 1,000 Ml IVPB PRN PRN Hypoglycemia Protocol Insulin Aspart 2 - 5 units 12/26/19 00:00 12/28/19 05:39 Insulin Aspart (*Bkc) 100 Units/Ml SUB-Q Not Given Q6HR MACK Protocol Ondansetron HCl 4 mg 12/25/19 21:10 12/26/19 12:00 Ondansetron Inj 4 Mg/2 Ml Vial IV PUSH 4 mg Q4H PRN Administration Nausea Radiology Results: ITS Impressions Abdomen/Pelvis CT 12/25/19 20:19 IMPRESSION: 1. Small bowel obstruction with transition point in the distal ileum. 2. 4.4 cm kidney mass, which may be a hemorrhagic cyst or a solid neoplasm. Abdomen CT without and with contrast is recommended. Small Bowel X-Ray 12/26/19 14:04 IMPRESSION: 1. Small bowel obstruction. Abdomen X-Ray 12/28/19 07:29 IMPRESSION: 1. Small bowel obstruction. Labs Labs: Laboratory Results - last 24 hr 12/27/19 12/27/19 12/27/19 11:42 17:43 21:49
--- NOTE | 2019-12-28 11:29 | WPDANESEPP ---
Anes - Eval Pre Procedure Procedure: Exploratory Laparotomy (Small Bowel Obstruction) Date/Time: 12/28/19 11:29 Surgeon: Homar Preop Diagnosis: Small Bowel Obstruction Pre Op Diagnosis: SBO Patient Data Age: 59 Gender: M Height: 6 ft 2 in Weight: 132.3 kg Last Vital Signs Temp 36.1 C L 12/28/19 09:16 Pulse 103 H 12/28/19 09:16 Resp 22 H 12/28/19 09:16 BP 150/97 H 12/28/19 09:16 Pulse Ox 98 12/28/19 09:16 Allergies Allergy/AdvReac Type Severity Reaction Status Date / Time No Known Allergies Allergy Verified 12/26/19 00:18 Home Medications Medication Instructions Recorded Confirmed Type furosemide 20 mg tablet 20 mg PO QAM #90 tablet 03/21/19 12/25/19 Rx hydrochlorothiazide 25 mg tablet 25 mg PO DAILY #90 tablet 03/31/19 12/25/19 Rx losartan 100 mg tablet 100 mg PO DAILY #90 tablet 03/31/19 12/25/19 Rx atorvastatin 40 mg tablet 40 mg PO DAILY #90 tablet 04/23/19 12/25/19 Rx blood sugar diagnostic #10 each 06/23/19 12/25/19 History blood-glucose meter #1 each 06/23/19 12/25/19 History empagliflozin 25 mg tablet 25 mg PO DAILY 06/23/19 12/25/19 History insulin glargine U-300 conc 300 See Rx Instructions SUB-Q DAILY 10/09/19 12/25/19 History unit/mL (1.5 mL) subcutaneous pen pen needle, diabetic 31 gauge x #30 each 10/15/19 12/25/19 Rx 07/04 metoprolol tartrate 50 mg tablet 50 mg PO BID #180 tablet 10/28/19 12/25/19 Rx semaglutide 0.25 mg SUB-Q WEEKLY 90 Days #3 ml 11/10/19 12/25/19 Rx metformin 1,000 mg PO BID 12/25/19 12/25/19 History Laboratory Tests 12/27/19 12/27/19 12/27/19 11:42 17:43 21:49 WBC RBC Hgb Hct MCV MCH MCHC RDW Plt Count MPV Immature Gran % (Auto) Neut % (Auto) Lymph % (Auto) [place] % (Auto) Eos % (Auto) Baso % (Auto) Lymph # (Auto) [place] # (Auto) Eos # (Auto) Baso # (Auto) Abs Immat Gran (auto) Absolute Neuts (auto) Absolute Nucleated RBC Nucleated RBC % Sodium Potassium Chloride Carbon Dioxide Anion Gap BUN Creatinine Estim Creat Clear Calc Estimated GFR Glucose POC Capillary Glucose 139 mg/dl H mg/dl 163 mg/dl H mg/dl 151 mg/dl H mg/dl (65-105) (65-105) (65-105) Calcium Total Bilirubin AST ALT Alkaline Phosphatase Total Protein Albumin 12/28/19 12/28/19 12/28/19 04:58 04:58 05:36 WBC 5.6 K/mm3 K/mm3 (4.5-10.0) RBC 5.40 M/mm3 M/mm3 (4.6-6.20) Hgb 15.9 g/dL g/dL (14.0-18.0) Hct 48.6 % % (42.0-52.0) MCV 90.0 fl fl (80-100) MCH 29.4 pg pg (26-34) MCHC 32.7 g/dl g/dl (32-36) RDW 13.0 % % (11.5-14.5) Plt Count 271 k/mm3 k/mm3 (150-375) MPV 10.5 fl H fl (7.4-10.4) Immature Gran % (Auto) 0.2 % % (0-0.5) Neut % (Auto) 46.7 % % (45.5-73.1) Lymph % (Auto) 36.1 % % (18.3-44.2) [place] % (Auto) 13.5 % H % (2.6-8.5) Eos % (Auto) 2.8 % % (0-4.4) Baso % (Auto) 0.7 % % (0.2-1.2) Lymph # (Auto) 2.03 K/mm3 K/mm3 (0.9-3.2) [place] # (Auto) 0.8 K/mm3 H K/mm3 (0.1-0.6) Eos # (Auto) 0.2 K/mm3 K/mm3 (0-0.3) Baso # (Auto) 0.0 K/mm3 K/mm3 (0.0-0.1) Abs Immat Gran (auto) 0.01 K/mm3 K/mm3 (0.00-0.031) Absolute Neuts (auto) 2.6 K/mm3 K/mm3 (1.3-6.7) Absolute Nucleated RBC 0.0 K/mm3 K/mm3 (0.0-0.012) Nucleated RBC % 0.0 % % (0.0-0.2) Sodium 149 mmol/L H mmol/L (137-145) Potassium 3.7 mmol/L
[2019-12-28 11:57] LABS: Glucose Point of Care 154 (65-105)
--- NOTE | 2019-12-28 12:24 | PM.IMPN ---
Progress Note: A&P Assessment and Plan (1) SBO (small bowel obstruction): Code(s): K56.609 - Unspecified intestinal obstruction, unspecified as to partial versus complete obstruction Status: Acute Assessment and Plan: NPO, bowel rest, IV fluids. No pain , antiemetics. continue conservatively management with NG tube and bowel rest. encourage ambulation. if conservative treatments do not help he might need surgery tomorrow. (2) Renal mass: Code(s): N28.89 - Other specified disorders of kidney and ureter Status: Acute Assessment and Plan: The patient will need a follow up CT abd/pelvis w/ contrast to evaluate this incidental renal mass that was found, urology has been consulted. (3) Type 2 diabetes mellitus: Qualifiers: Diabetes mellitus skilled nursing insulin use: without skilled nursing use Diabetes mellitus complication status: without complication Qualified Code(s): E11.9 - Type 2 diabetes mellitus without complications Code(s): E11.9 - Type 2 diabetes mellitus without complications Status: Chronic Assessment and Plan: Accuchecks, SSI Coverage, hypoglycemic protocol. pt is npo (4) Hypertension: Qualifiers: Hypertension type: unspecified Qualified Code(s): I10 - Essential (primary) hypertension Code(s): I10 - Essential (primary) hypertension Status: Chronic Assessment and Plan: stable. Monitor blood pressure (5) Hyperlipidemia: Qualifiers: Hyperlipidemia type: unspecified Qualified Code(s): E78.5 - Hyperlipidemia, unspecified Code(s): E78.5 - Hyperlipidemia, unspecified Status: Chronic Additional Plan Subjective Date/time seen: Denies abdominal pain but still not passing gas , no BM. 12/28/19 12:24 Review of Systems Review of Systems: All systems reviewed & are unremarkable except as noted in HPI and below Exam Const: General: cooperative, no acute distress, alert and awake Nutritional Appearance: obese Orientation/consciousness: patient oriented x3 HENMT: Head: normal to inspection General nose exam: Normal external nose present Face and sinus: normal facial exam Mouth: Yes Normal oral and palatal mucosa present and Yes oropharynx normal Eyes: Pupils: Equal, round and reactive pupils present EOM: EOMs intact bilaterally Neck: Neck: supple and no JVD Lymphatic: lymphadenopathy not noted Resp: Effort & Inspection: normal respiratory effort Auscultation: clear to auscultation bilaterally Cardio: Rate: regular rate Rhythm: regular rhythm Heart sounds: no murmurs GI: Inspection: distended Auscultation: absent bowel sounds Rectal Exam: deferred Skin: General skin exam: normal color and no rashes or lesions noted Neuro: General: patient oriented x3 Cranial nerves: Yes Equal, round and reactive pupils present Speech: normal speech Motor exam (neuro): 5/5 motor strength present throughout Sensory Exam: normal sensation Extrem: General: normal to inspection and no edema Right lower extremity: lower leg (Chronic edema++ ) Psych: Mental Status: mental status grossly normal Affect: normal affect Objective Data Vital Signs Vital Signs: Vital Signs - 24 hr 12/27/19 14:00 12/27/19 18:00 12/27/19 20:00 Temperature 98.1 F 97.9 F 97.5 F L Pulse Rate 90 119 H 90 Respiratory Rate 14 14 20 Blood Pressure 135/82 124/90 140/78 Pulse Oximetry 100 98 99 12/28/19 00:00 12/28/19 04:00 12/28/19 09:16 Temperature 97.9 F 97.7 F 97 F L Pulse Rate 83 78 103 H Respiratory Rate 20 18 22 H Blood Pressure 133/82 135/76 150/97 H Pulse Oximetry 100 96 98 Intake/Output Intake/Output: Intake & Output 12/25/19 12/26/19 12/27/19 12/28/19 23:59 23:59 23:59 23:59 Intake Total 2210 3000 1000 Output Total 5958 8625 1999 Balance -915 -1275 -1000 Meds/Results Medications: Active Medications Generic Name Dose Route Start Last Admin Trade Name Freq PRN Reason Stop Dos
--- NOTE | 2019-12-28 13:22 | WPDURCON ---
Assessment and Plan Assessment and plan (1) Renal mass: Code(s): N28.89 - Other specified disorders of kidney and ureter Status: Acute Assessment and Plan: 59 yo AAM admitted with SBO found incidentally to have 4 cm left renal mass. Needs renal mass protocol CT for further evaluation. I have ordered this for today. Will have Dr. Hall see him tomorrow to discuss results. If solid renal mass, the mass looks amenable to a partial nephrectomy. Has nl LFTs. Will need CXR if mass appears suspicious for malignancy. Urology Consult Note HPI Date Seen: 12/28/19 Requesting Physician: Alexandre Mariee MD Primary Care Provider: Ceci Lira MD Consult Narrative Narrative: Guru Jones is a 59 year old male admitted with SBO incidentally found to have a 4 cm left renal mass. It is unclear if this is a hemorrhagic cyst vs solid renal neoplasm. Pt denies any fevers, chills, dysuria, hematuria, or flank pain. SBO has not resolved despite NG decompression and bowel rest. May require ex lap tomorrow. He has a remote history of resection of benign abdominal mass 20 yrs ago. No urologic history Review of Systems Constitutional: Constitutional: Reports fatigue and Reports poor appetite Eyes: Eyes: Reports no additional eye complaints ENT: Reports Normal hearing present Cardiovascular: Cardiovascular: Reports pedal edema Respiratory: Respiratory: Reports no additional respiratory complaints Gastrointestinal: Gastrointestinal: Reports abdominal pain, Reports bloating and Reports vomiting Genitourinary: Genitourinary: Reports no additional male genitourinary complaints Musculoskeletal: Musculoskeletal: Reports no additional musculoskeletal complaints Neurologic: Reports Normal hearing present Psychiatric: Psychiatric: Reports no additional psychiatric complaints Endocrine: Endocrine: Reports no additional endocrine complaints Hematologic/Lymphatic: Hematologic/Lymphatic: Reports no additional hematologic/lymphatic complaints Allergic/Immunologic: Allergic/Immunologic: Reports no additional allergic/immunologic complaints [facility] Past Medical History Medical History Bilateral leg edema BMI 39.0-39.9,adult Colon cancer screening Edema of right lower leg History of benign neoplasm of small intestine History of femur fracture History of fracture of right ankle Hyperlipidemia Hypertension Obesity Primary hypertension Prostate cancer screening Surgical abdomen Tumor cells, benign Type 2 diabetes mellitus Type 2 diabetes mellitus with hyperglycemia Surgical History Surgical History H/O facial fracture repair History of ankle surgery History of cholecystectomy Family History Family History Father Hypertension Other Diabetes mellitus Social History Social History Smoking status: Never smoker Second hand tobacco smoke exposure: No Alcohol intake: never Substance use: never Substance use type: does not use Gender identity (if verbalized by the patient): Male Sexual Orientation (if Verbalized by the Patient): Straight or Heterosexual Spiritual care concerns: No Agree to blood products: Yes Meds Home Medications and Allergies Home Medications Medication Instructions Recorded Confirmed Type furosemide 20 mg tablet 20 mg PO QAM #90 tablet 03/21/19 12/25/19 Rx hydrochlorothiazide 25 mg tablet 25 mg PO DAILY #90 tablet 03/31/19 12/25/19 Rx losartan 100 mg tablet 100 mg PO DAILY #90 tablet 03/31/19 12/25/19 Rx atorvastatin 40 mg tablet 40 mg PO DAILY #90 tablet 04/23/19 12/25/19 Rx blood sugar diagnostic #10 each 06/23/19 12/25/19 History blood-glucose meter #1 each 06/23/19 12/25/19 History empagliflozin 25 mg tablet 25 mg PO DAILY 06/23/19
[2019-12-28 16:36] LABS: Glucose Point of Care 135 (65-105)
[2019-12-29] VITALS (15 sets, daily range): BP systolic 126–166; BP diastolic 77–96; PULSE 72–91; RESP 14–22; TEMP 35.6–36.8; O2SAT 93–100; BMI 37.4
[2019-12-29] MEDS: LACTATED RINGERS 1,000 ML 125 ML IV CONT ×3 (00:03→23:57)
[2019-12-29 00:07] LABS: Glucose Point of Care 121 (65-105)
[2019-12-29 05:38] LABS: Basophils Percent Auto 0.7 % (0.2-1.2); Eosinophils Absolute Auto 0.2 K/mm3 (0-0.3); Hematocrit 45.9 % (42.0-52.0); Hemoglobin 14.9 g/dL (14.0-18.0); Immature Granulocyte Absolute 0.02 K/mm3 (0.00-0.031); Immature Granulocyte Percent A 0.3 % (0-0.5); Lymphocytes Absolute Auto 2.06 K/mm3 (0.9-3.2); Lymphocytes Percent Auto 34.2 % (18.3-44.2); Mean Corpuscular HGB Conc 32.5 g/dl (32-36); Mean Corpuscular Hemoglobin 28.9 pg (26-34); Mean Platelet Volume 10.3 fl (7.4-10.4); Monocytes Absolute Auto 0.7 K/mm3 (0.1-0.6); Monocytes Percent Auto 11.6 % (2.6-8.5); Neutrophils Percent Auto 49.2 % (45.5-73.1); Platelet Count Result 253 k/mm3 (150-375); Red Blood Count 5.16 M/mm3 (4.6-6.20); Red Cell Distribution Width 12.6 % (11.5-14.5)
[2019-12-29 05:51] LABS: Anion Gap 5.99999 mmol/L (8-16); Blood Urea Nitrogen 26 mg/dL (9-20); Calcium 9.9 mg/dL (8.4-10.2); Carbon Dioxide > 40 mmol/L (22-30); Chloride 99 mmol/L (98-107); Estimated CRCL calculation 94 ml/min; Estimated Glomerular Filt Rate > 60; Glucose 130 mg/dL (75-110); Potassium 3.5 mmol/L (3.4-5.0); Sodium 145 mmol/L (137-145)
[2019-12-29 07:34] LABS: Glucose Point of Care 125 (65-105)
[2019-12-29] MEDS: LACTATED RINGERS 1,000 ML 30 ML IV CONT ×3 (10:25→14:47)
--- NOTE | 2019-12-29 11:37 | WPDHPUPDATE1 ---
History and Physical Update Update Date/Time: 12/29/19 11:37 History and Physical has been reviewed, including an updated exam of the patient. There are NO changes in the patient's condition. Risks, benefits, and alternatives have been discussed and questions answered. Patient agrees to proceed with procedure. No improvement on abdominal Xray this am and after long discussion with patient decision to proceed with exploratory laparatomy.
--- NOTE | 2019-12-29 11:37 | WPDANESEPPF ---
Anes - Initial Pre Proc Eval Procedure: Operation Date: 12/29/19 13:00 Proposed Procedures p Exploratory Laparotomy for Bowel Obstruction - Elissa Graf MD Date/Time: 12/29/19 11:37 Surgeon: Alexandre Mariee MD Pre Op Diagnosis: SBO Patient Data Age: 59 Gender: M Height: 6 ft 2 in Weight: 132.3 kg Last Vital Signs Temp 36.4 C 12/29/19 10:36 Pulse 74 12/29/19 10:36 Resp 16 12/29/19 10:36 BP 166/80 H 12/29/19 10:36 Pulse Ox 100 12/29/19 10:36 Allergies Allergy/AdvReac Type Severity Reaction Status Date / Time No Known Allergies Allergy Verified 12/26/19 00:18 Home Medications Medication Instructions Recorded Confirmed Type furosemide 20 mg tablet 20 mg PO QAM #90 tablet 03/21/19 12/25/19 Rx hydrochlorothiazide 25 mg tablet 25 mg PO DAILY #90 tablet 03/31/19 12/25/19 Rx losartan 100 mg tablet 100 mg PO DAILY #90 tablet 03/31/19 12/25/19 Rx atorvastatin 40 mg tablet 40 mg PO DAILY #90 tablet 04/23/19 12/25/19 Rx blood sugar diagnostic #10 each 06/23/19 12/25/19 History blood-glucose meter #1 each 06/23/19 12/25/19 History empagliflozin 25 mg tablet 25 mg PO DAILY 06/23/19 12/25/19 History insulin glargine U-300 conc 300 See Rx Instructions SUB-Q DAILY 10/09/19 12/25/19 History unit/mL (1.5 mL) subcutaneous pen pen needle, diabetic 31 gauge x #30 each 10/15/19 12/25/19 Rx / metoprolol tartrate 50 mg tablet 50 mg PO BID #180 tablet 10/28/19 12/25/19 Rx semaglutide 0.25 mg SUB-Q WEEKLY 90 Days #3 ml 11/10/19 12/25/19 Rx metformin 1,000 mg PO BID 12/25/19 12/25/19 History Laboratory Tests 12/28/19 12/28/19 12/29/19 11:53 16:33 00:03 WBC RBC Hgb Hct MCV MCH MCHC RDW Plt Count MPV Immature Gran % (Auto) Neut % (Auto) Lymph % (Auto) [place] % (Auto) Eos % (Auto) Baso % (Auto) Lymph # (Auto) [place] # (Auto) Eos # (Auto) Baso # (Auto) Abs Immat Gran (auto) Absolute Neuts (auto) Absolute Nucleated RBC Nucleated RBC % Sodium Potassium Chloride Carbon Dioxide Anion Gap BUN Creatinine Estim Creat Clear Calc Estimated GFR Glucose POC Capillary Glucose 154 mg/dl H mg/dl 135 mg/dl H mg/dl 121 mg/dl H mg/dl (65-105) (65-105) (65-105) Calcium 12/29/19 12/29/19 12/29/19 04:48 04:48 05:51 WBC 6.0 K/mm3 K/mm3 (4.5-10.0) RBC 5.16 M/mm3 M/mm3 (4.6-6.20) Hgb 14.9 g/dL g/dL (14.0-18.0) Hct 45.9 % % (42.0-52.0) MCV 89.0 fl fl (80-100) MCH 28.9 pg pg (26-34) MCHC 32.5 g/dl g/dl (32-36) RDW 12.6 % % (11.5-14.5) Plt Count 253 k/mm3 k/mm3 (150-375) MPV 10.3 fl fl (7.4-10.4) Immature Gran % (Auto) 0.3 % % (0-0.5) Neut % (Auto) 49.2 % % (45.5-73.1) Lymph % (Auto) 34.2 % % (18.3-44.2) [place] % (Auto) 11.6 % H % (2.6-8.5) Eos % (Auto) 4.0 % % (0-4.4) Baso % (Auto) 0.7 % % (0.2-1.2) Lymph # (Auto) 2.06 K/mm3 K/mm3 (0.9-3.2) [place] # (Auto) 0.7 K/mm3 H K/mm3 (0.1-0.6) Eos # (Auto) 0.2 K/mm3 K/mm3 (0-0.3) Baso # (Auto) 0.0 K/mm3 K/mm3 (0.0-0.1) Abs Immat Gran (auto) 0.02 K/mm3 K/mm3 (0.00-0.031) Absolute Neuts (auto) 3.0 K/mm3 K/mm3 (1.3-6.7) Absolute Nucleated RBC 0.0 K/mm3 K/mm3 (0.0-0.012) Nucleated RBC % 0.0 % % (0.0-0.2) Sodium 145 mmol/L mmol/L (137-145) Potassium 3.5 mmol/L mmol/L (3.4-5.0) Chloride 99 mmol/L mmol/L (98-107) Carbon Dioxide >
[2019-12-29] MEDS: ceFAZolin 3 GM/D5W 100 ML 100 ML IVPB (12:06)
[2019-12-29 14:06] LABS: Glucose Point of Care 170 (65-105)
[2019-12-29] MEDS: fentaNYL CITRATE INJ (*CRX) 100 MCG/2 ML VIAL 25 MCG IV PUSH ×7 (14:08→15:22)
--- NOTE | 2019-12-29 14:09 | P.OP_ITS ---
Procedure Note - Detailed Date of procedure: 12/29/19 Pre-op diagnosis: SBO Post-op diagnosis: same Procedure performed: Exploratory laparotomy with extensive lysis of adhesions approximately 45 minutes, reduction of internal hernia Description of procedure: The patient was taken to the operating room placed in the supine position. After adequate induction of general anesthesia, the patient was prepped and draped normal sterile fashion. Time-out was then done to verify the patient's identity, as well as the procedure being performed. Began by making a generous midline incision from the umbilicus through his old midline incision. This incision was taken down into the peritoneal cavity. Upon entering the peritoneal cavity, it was noted the patient had extensive adhesions to the anterior midline and left abdomen. The patient also had a large amount of interloop adhesions. The patient also had massively dilated small intestine. An extensive lysis of adhesions was undertaken and was able to free the entirety of the small bowel after will took about 45 minutes. There is also a dense adhesion in the mid pelvis, and the small bowel in this area was completely twisted around this adhesion causing almost a close loop obstr uction/internal hernia. Once this was freed up, I was able to note decompressed terminal ileum going into the cecum. I was able to run the entirety of the small bowel and no other pathology was seen. I then was able to visualize the entirety of the colon and no other pathology was noted. Given this I copiously irrigated the abdomen. The fascia was closed with 1. Looped PDS suture. The skin was closed with skin kiel. The patient tolerated the procedure well and was extubated in the operating room postoperatively. He will be transferred to the recovery room in stable condition. Implants: none Anesthesia: GETA Surgeon: Elissa Graf MD Estimated blood loss (mL): 100 Drains: No Packing: No Pathology: none sent Complications: No immediate complications Condition: stable Disposition: PACU Findings: extensive adhesions, internal rotation caused by a band in the mid pelvic area causing an internal hernia
[2019-12-29] MEDS: HYDROmorphone HCL INJ (*CRX) 1 MG/ML SYR 0.5 MG IV PUSH (15:40)
--- NOTE | 2019-12-29 16:31 | PM.IMPN ---
Progress Note: A&P Assessment and Plan (1) SBO (small bowel obstruction): Code(s): K56.609 - Unspecified intestinal obstruction, unspecified as to partial versus complete obstruction Status: Acute Assessment and Plan: Pt had an exploratory laparotomy with adhesiolysis today, no major complications in the immediate post operative period. (2) Renal mass: Code(s): N28.89 - Other specified disorders of kidney and ureter Status: Acute Assessment and Plan: Ct with renal mass protocol shows an enhancing 4.4 cm mass most likely renal cell carcinoma, he might require a partial nephrectomy. Appreciate urology input. (3) Type 2 diabetes mellitus: Qualifiers: Diabetes mellitus fpc insulin use: without fpc use Diabetes mellitus complication status: without complication Qualified Code(s): E11.9 - Type 2 diabetes mellitus without complications Code(s): E11.9 - Type 2 diabetes mellitus without complications Status: Chronic Assessment and Plan: Accuchecks, SSI Coverage, hypoglycemic protocol. pt is npo (4) Hypertension: Qualifiers: Hypertension type: unspecified Qualified Code(s): I10 - Essential (primary) hypertension Code(s): I10 - Essential (primary) hypertension Status: Chronic Assessment and Plan: stable. Monitor blood pressure (5) Hyperlipidemia: Qualifiers: Hyperlipidemia type: unspecified Qualified Code(s): E78.5 - Hyperlipidemia, unspecified Code(s): E78.5 - Hyperlipidemia, unspecified Status: Chronic Additional Plan Subjective Date/time seen: Having abdominal pain , he just came back from the OR where he had an exploratory laparatomy. 12/29/19 16:31 Exam Const: General: cooperative, no acute distress, alert and awake Nutritional Appearance: obese Orientation/consciousness: patient oriented x3 HENMT: Head: normal to inspection General nose exam: Normal external nose present Face and sinus: normal facial exam Mouth: Yes Normal oral and palatal mucosa present and Yes oropharynx normal Eyes: Pupils: Equal, round and reactive pupils present EOM: EOMs intact bilaterally Neck: Neck: supple and no JVD Lymphatic: lymphadenopathy not noted Resp: Effort & Inspection: normal respiratory effort Auscultation: clear to auscultation bilaterally Cardio: Rate: regular rate Rhythm: regular rhythm Heart sounds: no murmurs GI: Inspection: distended Other: Diffuse tenderness, no guarding. Surgical dressings without evident discharge. Skin: General skin exam: normal color and no rashes or lesions noted Neuro: General: patient oriented x3 Cranial nerves: Yes Equal, round and reactive pupils present Speech: normal speech Motor exam (neuro): 5/5 motor strength present throughout Sensory Exam: normal sensation Extrem: General: normal to inspection and no edema Right lower extremity: lower leg (Chronic edema++ ) Psych: Mental Status: mental status grossly normal Affect: normal affect Objective Data Vital Signs Vital Signs: Vital Signs - 24 hr 12/28/19 18:00 12/28/19 20:00 12/28/19 21:33 Temperature 97.9 F 97.8 F Pulse Rate 116 H 67 67 Respiratory Rate 19 18 18 Blood Pressure 152/99 H 138/82 Pulse Oximetry 97 97 97 12/29/19 02:00 12/29/19 06:00 12/29/19 10:36 Temperature 98.3 F 98.2 F 97.6 F Pulse Rate 83 72 74 Respiratory Rate 16 14 16 Blood Pressure 145/79 H 142/88 H 166/80 H Pulse Oximetry 95 98 100 12/29/19 13:50 12/29/19 14:05 12/29/19 14:20 Temperature 97.6 F Pulse Rate 79 73 78 Respiratory Rate 16 19 16 Blood Pressure 152/96 H 146/95 H 153/93 H Pulse Oximetry 100 100 100 12/29/19 14:35 12/29/19 14:50 12/29/19 15:05 Temperature Pulse Rate 88 88 89 Respiratory Rate 18 18 22 H Blood Pressure 143/95 H 140/84 137/86 Pulse Oximetry 98 98 94 12/29/19 15:20 12/29/19 15:50 12/29/19 16:05 Temperature 96.1 F L 96.3 F L Pulse Rate
--- NOTE | 2019-12-29 17:49 | WPDUROPN2 ---
Progress Note: A&P Assessment and Plan (1) Hyperbilirubinemia: Code(s): E80.6 - Other disorders of bilirubin metabolism Status: Acute (2) Renal mass: Code(s): N28.89 - Other specified disorders of kidney and ureter Status: Acute Assessment and Plan: CT-abd/pelvis findings c/w left renal cell ca. -> discussed with pt. this evening. Should be amenable to robotic partial nephrectomy once he's recovered. Subjective Subjective Date/Time Seen: 12/29/19 17:49 Awake, recovering from x-lap earlier today. Review of Systems Cardiovascular: Cardiovascular: Denies chest pain, Denies lightheadedness, Denies palpitations and Denies dyspnea Respiratory: Respiratory: Denies dyspnea Gastrointestinal: Gastrointestinal: Denies diarrhea, Denies nausea and Denies vomiting Genitourinary: Genitourinary: Denies hematuria and Denies dysuria Endocrine: Endocrine: Denies palpitations Exam Const: General: no acute distress Resp: Effort & Inspection: normal respiratory effort GI: Inspection: non-distended GI Palp: No abdominal tenderness and No Guarding due to palpation present (GI) Auscultation: normal bowel sounds Objective Data Vital Signs Vital Signs: Vital Signs - 24 hr 12/28/19 18:00 12/28/19 20:00 12/28/19 21:33 Temperature 97.9 F 97.8 F Pulse Rate 116 H 67 67 Respiratory Rate 19 18 18 Blood Pressure 152/99 H 138/82 Pulse Oximetry 97 97 97 12/29/19 02:00 12/29/19 06:00 12/29/19 10:36 Temperature 98.3 F 98.2 F 97.6 F Pulse Rate 83 72 74 Respiratory Rate 16 14 16 Blood Pressure 145/79 H 142/88 H 166/80 H Pulse Oximetry 95 98 100 12/29/19 13:50 12/29/19 14:05 12/29/19 14:20 Temperature 97.6 F Pulse Rate 79 73 78 Respiratory Rate 16 19 16 Blood Pressure 152/96 H 146/95 H 153/93 H Pulse Oximetry 100 100 100 12/29/19 14:35 12/29/19 14:50 12/29/19 15:05 Temperature Pulse Rate 88 88 89 Respiratory Rate 18 18 22 H Blood Pressure 143/95 H 140/84 137/86 Pulse Oximetry 98 98 94 12/29/19 15:20 12/29/19 15:50 12/29/19 16:05 Temperature 96.1 F L 96.3 F L Pulse Rate 88 91 89 Respiratory Rate 21 H 18 18 Blood Pressure 135/82 126/77 134/79 Pulse Oximetry 94 93 94 12/29/19 16:35 Temperature 96.9 F L Pulse Rate 88 Respiratory Rate Blood Pressure 143/86 H Pulse Oximetry 97 Intake/Output Intake/Output: Intake & Output 12/26/19 12/27/19 12/28/19 12/29/19 23:59 23:59 23:59 23:59 Intake Total 2210 3000 3200 1900 Output Total 3125 3505 8301 750 Balance -776 -7090 -871 1150 Meds/Results Medications: Active Medications Generic Name Dose Route Start Last Admin Trade Name Freq PRN Reason Stop Dose Admin Dextrose 12.5 gm 12/25/19 22:36 Dextrose 50% 25 Gm/50 Ml Syringe IV PUSH PRN PRN Hypoglycemia Protocol Glucagon 1 mg 12/25/19 22:36 Glucagon For Inj 1 Mg Vial IM PRN PRN Hypoglycemia Protocol Hydromorphone HCl 0.5 mg 12/29/19 17:34 Hydromorphone Hcl Inj (*Crx) 1 Mg/Ml Syr IV PUSH Q2H PRN Pain Rated 4-6 Hydromorphone HCl 1 mg 12/29/19 17:33 Hydromorphone Hcl Inj (*Crx) 1 Mg/Ml Syr IV PUSH Q2H PRN Pain Rated 7-10 Lactated Ringer's 1,000 mls @ 125 mls/hr 12/25/19 21:10 12/29/19 08:12 Lr - Lactated Ringers Iv IV CONT 125 mls/hr .Q8H MACK Administration Dextrose 1,000 mls @ 100 mls/hr 12/25/19 22:36 Dextrose 5% 1,000 Ml IVPB PRN PRN Hypoglycemia Protocol Acetaminophen 1,000 mg in 100 mls @ 400 mls/hr 12/29/19 18:00 Ofirmev 1,000 Mg Ivpb IVPB 12/30/19 18:01 Q6HR MACK Insulin Aspart 2 - 5 units 12/26/19 00:00 12/29/19 15:44 Insulin Aspart (*Bkc) 100 Units/Ml SUB-Q Not Given Q6HR MACK Protocol Ondansetron HCl 4 mg 12/25/19 21:10 12/26/19 12:00 Ondansetron Inj 4 Mg/2 Ml Vial IV PUSH 4 mg Q4H PRN Administration Nausea Radiology Results: ITS Impressions Abdomen/Pelvis CT 12/25/19 20:19 IMPRESSION:
[2019-12-29] MEDS: HYDROmorphone HCL INJ (*CRX) 1 MG/ML SYR IV PUSH ×2 (17:51→20:33)
[2019-12-29 18:06] LABS: Glucose Point of Care 182 (65-105)
[2019-12-30] VITALS (7 sets, daily range): BP systolic 127–152; BP diastolic 61–98; PULSE 60–96; RESP 14–22; TEMP 36.3–37.3; O2SAT 97–98
[2019-12-30 00:18] LABS: Glucose Point of Care 160 (65-105)
[2019-12-30] MEDS: HYDROmorphone HCL INJ (*CRX) 1 MG/ML SYR IV PUSH (04:21)
[2019-12-30 05:53] LABS: Basophils Percent Auto 0.3 % (0.2-1.2); Eosinophils Absolute Auto 0.1 K/mm3 (0-0.3); Eosinophils Percent Auto 0.6 % (0-4.4); Hematocrit 48.3 % (42.0-52.0); Immature Granulocyte Absolute 0.02 K/mm3 (0.00-0.031); Immature Granulocyte Percent A 0.2 % (0-0.5); Lymphocytes Absolute Auto 1.59 K/mm3 (0.9-3.2); Lymphocytes Percent Auto 17.1 % (18.3-44.2); Mean Corpuscular HGB Conc 33.1 g/dl (32-36); Mean Corpuscular Hemoglobin 29.7 pg (26-34); Mean Corpuscular Volume 89.6 fl (80-100); Mean Platelet Volume 10.4 fl (7.4-10.4); Monocytes Absolute Auto 0.9 K/mm3 (0.1-0.6); Monocytes Percent Auto 10.1 % (2.6-8.5); Neutrophils Absolute Auto 6.7 K/mm3 (1.3-6.7); Neutrophils Percent Auto 71.7 % (45.5-73.1); Platelet Count Result 253 k/mm3 (150-375); Red Blood Count 5.39 M/mm3 (4.6-6.20); Red Cell Distribution Width 12.8 % (11.5-14.5); White Blood Count 9.3 K/mm3 (4.5-10.0)
[2019-12-30 06:14] LABS: Anion Gap 8 mmol/L (8-16); Blood Urea Nitrogen 29 mg/dL (9-20); Calcium 8.9 mg/dL (8.4-10.2); Carbon Dioxide 34 mmol/L (22-30); Chloride 101 mmol/L (98-107); Estimated CRCL calculation 87 ml/min; Estimated Glomerular Filt Rate > 60; Glucose 172 mg/dL (75-110); Potassium 4.1 mmol/L (3.4-5.0); Sodium 143 mmol/L (137-145)
[2019-12-30] MEDS: LACTATED RINGERS 1,000 ML 125 ML IV CONT ×3 (06:18→23:49)
--- NOTE | 2019-12-30 06:59 | P.PNAN_ITS ---
Anes - Prog Note Post-Op Date/Time: 12/30/19 06:59 Cardiovascular status: normal Respiratory status: normal Airway patency: baseline Mental status: baseline Post-Op hydration status: normal Vital Signs: Last Vital Signs Temp 36.7 C 12/30/19 06:02 Pulse 60 12/30/19 06:02 Resp 22 H 12/30/19 06:02 BP 148/61 H 12/30/19 06:02 Pulse Ox 98 12/30/19 06:02 Pain Score (VAS): 3 I/O: Intake & Output 12/29/19 12/29/19 12/30/19 15:59 23:59 07:59 Intake Total 1850 1100 1100 Output Total 500 100 900 Balance 1350 1000 200 Laboratory Tests 12/30/19 05:04 12/30/19 05:04 12/29/19 12/29/19 12/29/19 05:51 14:03 17:56 WBC RBC Hgb Hct MCV MCH MCHC RDW Plt Count MPV Immature Gran % (Auto) Neut % (Auto) Lymph % (Auto) [place] % (Auto) Eos % (Auto) Baso % (Auto) Lymph # (Auto) [place] # (Auto) Eos # (Auto) Baso # (Auto) Abs Immat Gran (auto) Absolute Neuts (auto) Absolute Nucleated RBC Nucleated RBC % Sodium Potassium Chloride Carbon Dioxide Anion Gap BUN Creatinine Estim Creat Clear Calc Estimated GFR Glucose POC Capillary Glucose 125 H 170 H 182 H Calcium 12/29/19 12/30/19 12/30/19 23:57 05:04 05:04 WBC 9.3 RBC 5.39 Hgb 16.0 Hct 48.3 MCV 89.6 MCH 29.7 MCHC 33.1 RDW 12.8 Plt Count 253 MPV 10.4 Immature Gran % (Auto) 0.2 Neut % (Auto) 71.7 Lymph % (Auto) 17.1 L [place] % (Auto) 10.1 H Eos % (Auto) 0.6 Baso % (Auto) 0.3 Lymph # (Auto) 1.59 [place] # (Auto) 0.9 H Eos # (Auto) 0.1 Baso # (Auto) 0.0 Abs Immat Gran (auto) 0.02 Absolute Neuts (auto) 6.7 Absolute Nucleated RBC 0.0 Nucleated RBC % 0.0 Sodium 143 Potassium 4.1 Chloride 101 Carbon Dioxide 34 H Anion Gap 8 BUN 29 H Creatinine 1.20 Estim Creat Clear Calc 87 Estimated GFR > 60 Glucose 172 H POC Capillary Glucose 160 H Calcium 8.9 Post-procedural complaints: none Patient Feedback: Patient satisfied with anesthetic care.
--- NOTE | 2019-12-30 07:10 | PM.IMPN ---
Progress Note: A&P Assessment and Plan (1) Renal mass: Code(s): N28.89 - Other specified disorders of kidney and ureter Status: Acute Assessment and Plan: -Urology evaluated and will follow-up outpatient (2) Hyperbilirubinemia: Code(s): E80.6 - Other disorders of bilirubin metabolism Status: Acute Assessment and Plan: will watch (3) SBO (small bowel obstruction): Code(s): K56.609 - Unspecified intestinal obstruction, unspecified as to partial versus complete obstruction Status: Acute Assessment and Plan: - postop day 1 ex lap and adhesiolysis. surgeon Dr. Graf. - molina catheter being removed today - NG tube in place, awaiting bowel movements or gas - patient to PT/OT, patient has good attitude about walking and his rehab - pain control: Tylenol, dialudid - nausea: Zofran (4) BMI 39.0-39.9,adult: Code(s): Z68.39 - Body mass index [BMI] 39.0-39.9, adult Status: Acute (5) Type 2 diabetes mellitus: Qualifiers: Diabetes mellitus ferry terminal agent insulin use: without ferry terminal agent use Diabetes mellitus complication status: without complication Qualified Code(s): E11.9 - Type 2 diabetes mellitus without complications Code(s): E11.9 - Type 2 diabetes mellitus without complications Status: Chronic Assessment and Plan: - continue low-dose sliding scale insulin while NPO - home Jardiance, metformin, Lantus, ozempic (6) Hyperlipidemia: Qualifiers: Hyperlipidemia type: unspecified Qualified Code(s): E78.5 - Hyperlipidemia, unspecified Code(s): E78.5 - Hyperlipidemia, unspecified Status: Chronic Assessment and Plan: holding statin while NPO (7) Hypertension: Qualifiers: Hypertension type: unspecified Qualified Code(s): I10 - Essential (primary) hypertension Code(s): I10 - Essential (primary) hypertension Status: Chronic Assessment and Plan: holding p.o. antihypertensives, will watch Subjective Date/time seen: 12/30/19 07:10Patient exhibits. Postop day 1. Ex lap and adhesiolysis by Dr. Graf. Urology will do L partial nephrectomy of renal cell carcinoma in a few weeks /months once stable. Molina catheter removed today. He has new complaints today. Has a good attitude about his rehab would like to start walking soon. Lab stable, vitals stable. He has not passed gas yet. NG tube to suction. Patient denies fever, chills, nausea, vomiting , abdominal pain. Review of Systems Review of Systems: All systems reviewed & are unremarkable except as noted in HPI and below Exam Narrative: Exam Narrative: - GENERAL: Well-nourished male in no acute distress. - EYES: EOMI. Anicteric. - HENT: Moist mucous membranes. No scleral icterus. NG tube with bilious output dissection - LUNGS: Clear to auscultation bilaterally, no wheezing, rhonchi, or rales. - CARDIOVASCULAR: Regular rate and rhythm. No murmur. No JVD. - ABDOMEN: Soft, appropriate tenderness postsurgical,dressing clean/dry /intact, hypoactive bowel sounds. - EXTREMITIES: right lower extremity chronic swelling, extremities externally rotated. Peripheral pulses 2+. Her lower extremity old surgical scars. Non-tender. - NEUROLOGIC: No focal neurological deficits. CN II-XII grossly intact. - PSYCHIATRIC: Awake, Alert and oriented x 3. Appropriate mood and affect. - SKIN: No rashes or lesions. Warm. - LYMPH: No cervical lymphadenopathy. Objective Data Vital Signs Vital Signs: Vital Signs - 24 hr 12/29/19 10:36 12/29/19 13:50 12/29/19 14:05 Temperature 36.4 C 36.4 C Pulse Rate 74 79 73 Respiratory Rate 16 16 19 Blood Pressure 166/80 H 152/96 H 146/95 H Pulse Oximetry 100 100 100 12/29/19 14:20 12/29/19 14:35 12/29/19 14:50 Temperature Pulse Rate 78 88 88 Respiratory Rate 16 18 18 Blood Pressure 153/93 H 143/95 H 140/84 Pulse Oximetry 100 98 98 12/29/19 15:05 12/29/19 15:20 12/29/19 15:50 Temperature
[2019-12-30 07:27] LABS: Glucose Point of Care 162 (65-105)
--- NOTE | 2019-12-30 10:12 | PM.PNGS ---
Progress Note: A&P Assessment and Plan (1) SBO (small bowel obstruction): Code(s): K56.609 - Unspecified intestinal obstruction, unspecified as to partial versus complete obstruction Status: Acute Assessment and Plan: Continue NG tube decompression and bowel rest, await return of bowel function. Remove Bain catheter. Encouraged increased activity and sitting up in the chair today if tolerated. (2) Renal mass: Code(s): N28.89 - Other specified disorders of kidney and ureter Status: Acute Assessment and Plan: Urology consult noted and appreciated. Additional Plan Discussed patient's plan of care with Dr. Graf. Subjective Subjective Date/Time Seen: 12/30/19 09:00 Post Op day: 1 (Ex lap with adhesiolysis) Patient reports: feels better, no flatus and no bowel movement Interval history: Patient feeling well this morning. Reports having some abdominal pain that improved with pain medication last night after surgery, but very little soreness this morning. He denies nausea. Denies flatus or BM. No other complaints at this time. Review of Systems Review of Systems: All systems reviewed & are unremarkable except as noted in HPI and below Constitutional: Constitutional: Reports no additional constitutional complaints, Denies chills and Denies fever(s) Cardiovascular: Cardiovascular: Reports no additional cardiovascular complaints, Denies chest pain, Denies chest pain at rest and Denies pedal edema Respiratory: Respiratory: Reports no additional respiratory complaints, Denies cough, Denies dyspnea and Denies dyspnea on exertion Gastrointestinal: Gastrointestinal: Reports as per HPI and Reports no additional gastrointestinal complaints Genitourinary: Comments: Bain in place. Patient requesting this to be removed. Neurologic: Denies confusion and Denies dizziness Exam Const: General: comfortable, no acute distress, alert and awake Orientation/consciousness: patient oriented x3 Resp: Effort & Inspection: normal respiratory effort and able to speak in complete sentences Auscultation: clear to auscultation bilaterally Cardio: Rate: regular rate Rhythm: regular rhythm GI: Inspection: incision (midline dressing clean/dry/intact) and other (mildly distended) GI Palp: Yes Soft to palpation, Yes Tenderness to palpation present (GI) (diffusely tender, worse near incision) and No Guarding due to palpation present (GI) Auscultation: Hypoactive bowel sounds present Urinary Catheter: Urinary Catheter: patent and draining and urine clear Neuro: General: patient oriented x3 and moves all extremities Cranial nerves: Yes CN's II-XII intact bilaterally Speech: normal speech Extrem: General: no calf tenderness and no edema Psych: Mental Status: mental status grossly normal Attitude: cooperative Thought process: Normal thought process present Thought content: Yes Normal thought content present Objective Data Vital Signs Vital Signs: Vital Signs - 24 hr 12/29/19 10:36 12/29/19 13:50 12/29/19 14:05 Temperature 97.6 F 97.6 F Pulse Rate 74 79 73 Respiratory Rate 16 16 19 Blood Pressure 166/80 H 152/96 H 146/95 H Pulse Oximetry 100 100 100 12/29/19 14:20 12/29/19 14:35 12/29/19 14:50 Temperature Pulse Rate 78 88 88 Respiratory Rate 16 18 18 Blood Pressure 153/93 H 143/95 H 140/84 Pulse Oximetry 100 98 98 12/29/19 15:05 12/29/19 15:20 12/29/19 15:50 Temperature 96.1 F L Pulse Rate 89 88 91 Respiratory Rate 22 H 21 H 18 Blood Pressure 137/86 135/82 126/77 Pulse Oximetry 94 94 93 12/29/19 16:05 12/29/19 16:35 12/29/19 17:35 Temperature 96.3 F L 96.9 F L 97.6 F Pulse Rate 89 88 87 Respiratory Rate 18 16 Blood Pressure 134/79 143/86 H 131/85 Pulse Oximetry 94 97 98 12/29/19 20:00 12/30/19 00:00 12/30/19 04:00 Temperature 97.6 F 97.7 F 99.1 F Pulse Rate 83 87 89 Respiratory Rate 20 20 20 Blood Pressure 135/82 136/98 H 127/97 H Pulse Oximetry 97 98 97 12/30/19
[2019-12-30 11:38] LABS: Glucose Point of Care 172 (65-105)
[2019-12-30 17:26] LABS: Glucose Point of Care 178 (65-105)
[2019-12-30 22:59] LABS: Glucose Point of Care 183 (65-105)
[2019-12-31 00:28] LABS: Glucose Point of Care 168 (65-105)
[2019-12-31 02:00] VITALS: BP 132/81; PULSE 93; RESP 20; TEMP 36.8; O2SAT 92
[2019-12-31 05:27] LABS: Basophils Percent Auto 0.4 % (0.2-1.2); Eosinophils Absolute Auto 0.4 K/mm3 (0-0.3); Eosinophils Percent Auto 3.9 % (0-4.4); Hematocrit 44.2 % (42.0-52.0); Hemoglobin 14.6 g/dL (14.0-18.0); Immature Granulocyte Absolute 0.04 K/mm3 (0.00-0.031); Immature Granulocyte Percent A 0.4 % (0-0.5); Lymphocytes Percent Auto 18.6 % (18.3-44.2); Mean Corpuscular Hemoglobin 29.4 pg (26-34); Mean Corpuscular Volume 88.9 fl (80-100); Mean Platelet Volume 10.4 fl (7.4-10.4); Monocytes Absolute Auto 0.8 K/mm3 (0.1-0.6); Monocytes Percent Auto 8.3 % (2.6-8.5); Neutrophils Absolute Auto 6.2 K/mm3 (1.3-6.7); Neutrophils Percent Auto 68.4 % (45.5-73.1); Platelet Count Result 204 k/mm3 (150-375); Red Blood Count 4.97 M/mm3 (4.6-6.20); Red Cell Distribution Width 12.7 % (11.5-14.5); White Blood Count 9.1 K/mm3 (4.5-10.0)
[2019-12-31 05:43] LABS: Anion Gap 8 mmol/L (8-16); Blood Urea Nitrogen 20 mg/dL (9-20); Calcium 9.2 mg/dL (8.4-10.2); Carbon Dioxide 35 mmol/L (22-30); Chloride 101 mmol/L (98-107); Estimated CRCL calculation 103 ml/min; Estimated Glomerular Filt Rate > 60; Glucose 169 mg/dL (75-110); Potassium 3.7 mmol/L (3.4-5.0); Sodium 144 mmol/L (137-145)
[2019-12-31 05:58] VITALS: BP 136/82; PULSE 93; RESP 20; TEMP 36.7; O2SAT 95
[2019-12-31 06:38] LABS: Glucose Point of Care 172 (65-105)
[2019-12-31] MEDS: LACTATED RINGERS 1,000 ML 125 ML IV CONT ×2 (08:23→20:12)
--- NOTE | 2019-12-31 09:11 | PM.IMPN ---
Progress Note: A&P Assessment and Plan (1) Renal mass: Code(s): N28.89 - Other specified disorders of kidney and ureter Status: Acute Assessment and Plan: -Urology evaluated and will follow-up outpatient for left partial nephrectomy in the future (2) SBO (small bowel obstruction): Code(s): K56.609 - Unspecified intestinal obstruction, unspecified as to partial versus complete obstruction Status: Acute Assessment and Plan: - postop day 2 ex lap and adhesiolysis. surgeon Dr. Graf. - molina removed yesterday, patient urinating on his own with no problems - NG tube in place, still awaiting bowel movements or gas - patient has good attitude about walking and getting his bowels moving - pain control: Tylenol, dialudid, patient does not have abdominal pain and understands to minimize use of opiates to help bowels move - nausea: Zofran (3) BMI 39.0-39.9,adult: Code(s): Z68.39 - Body mass index [BMI] 39.0-39.9, adult Status: Acute (4) Type 2 diabetes mellitus: Qualifiers: Diabetes mellitus complication status: without complication Diabetes mellitus mcc insulin use: without intermediate designer use Qualified Code(s): E11.9 - Type 2 diabetes mellitus without complications Code(s): E11.9 - Type 2 diabetes mellitus without complications Status: Chronic Assessment and Plan: - continue low-dose sliding scale insulin while NPO - home Jardiance, metformin, Lantus, ozempic (5) Hyperlipidemia: Qualifiers: Hyperlipidemia type: unspecified Qualified Code(s): E78.5 - Hyperlipidemia, unspecified Code(s): E78.5 - Hyperlipidemia, unspecified Status: Chronic Assessment and Plan: holding statin while NPO (6) Hypertension: Qualifiers: Hypertension type: unspecified Qualified Code(s): I10 - Essential (primary) hypertension Code(s): I10 - Essential (primary) hypertension Status: Chronic Assessment and Plan: holding p.o. antihypertensives, will watch Additional Plan Subjective Date/time seen: 12/31/19 09:11 Interval history: Patient examined bedside. POD#2 ex [address] Dr[address] Graf. Molina catheter removed yesterday and he is urinating on his own without problems. He is continuing to walk around his room as much as possible. no bowel movements or passing gas yet, he is belching. He has no complaints and would like to hold off on any pain medication to allow his bowels to move. Vitals and labs stable. Patient denies fever, chills, nausea, vomiting , abdominal pain. Review of Systems Review of Systems: All systems reviewed & are unremarkable except as noted in HPI and below Exam Narrative: Exam Narrative: - GENERAL: Well-nourished male in no acute distress. - EYES: EOMI. Anicteric. - HENT: Moist mucous membranes. No scleral icterus. NG tube with bilious output to suction - LUNGS: Clear to auscultation bilaterally, no wheezing, rhonchi, or rales. - CARDIOVASCULAR: Regular rate and rhythm. No murmur. No JVD. - ABDOMEN: Soft, nontender, dressing clean/dry /intact, hypoactive bowel sounds throughout. - EXTREMITIES: right lower extremity chronic swelling, extremities externally rotated. Peripheral pulses 2+. Right leg lower extremity old surgical scars. Non-tender. - NEUROLOGIC: No focal neurological deficits. CN II-XII grossly intact. - PSYCHIATRIC: Awake, Alert and oriented x 3. Appropriate mood and affect. - SKIN: No rashes or lesions. Warm. - LYMPH: No cervical lymphadenopathy. Objective Data Vital Signs Vital Signs: Vital Signs - 24 hr 12/30/19 10:00 12/30/19 14:00 12/30/19 18:00 Temperature 36.7 C 37.0 C 37.3 C Pulse Rate 89 92 96 Respiratory Rate 14 16 16 Blood Pressure 152/86 H 144/85 H 128/88 Pulse Oximetry 98 98 97 12/30/19 22:00 12/31/19 02:00 12/31/19 05:58 Temperature 36.3 C L 36.8 C 36.7 C Pulse Rate 93 93 93 Respiratory Rate 20 20 20 Blood Pressure 144/85 H 132/81 13
[2019-12-31 10:00] VITALS: BP 135/85; PULSE 96; RESP 18; TEMP 36.9; O2SAT 96
--- NOTE | 2019-12-31 10:58 | PM.PNGS ---
Progress Note: A&P Assessment and Plan (1) SBO (small bowel obstruction): Code(s): K56.609 - Unspecified intestinal obstruction, unspecified as to partial versus complete obstruction Status: Acute Assessment and Plan: await bowel fxn, cont NG decompression, bowel rest, encourage OOB/IS (2) Renal mass: Code(s): N28.89 - Other specified disorders of kidney and ureter Status: Acute Assessment and Plan: will need partial nephrectomy per urology Subjective Subjective Date/Time Seen: 12/31/19 10:58 feels ok, still awaiting bowel fxn Review of Systems Review of Systems: All systems reviewed & are unremarkable except as noted in HPI and below Exam Const: General: comfortable and no acute distress Resp: Effort & Inspection: normal respiratory effort Auscultation: clear to auscultation bilaterally Cardio: Rate: regular rate Rhythm: regular rhythm GI: Inspection: normal to inspection, distended and incision GI Palp: Yes abdominal tenderness, Yes Soft to palpation, No Firmness to palpation present (GI), Yes Tenderness to palpation present (GI) and No Guarding due to palpation present (GI) Objective Data Vital Signs Vital Signs: Vital Signs - 24 hr 12/30/19 14:00 12/30/19 18:00 12/30/19 22:00 Temperature 37.0 C 37.3 C 36.3 C L Pulse Rate 92 96 93 Respiratory Rate 16 16 20 Blood Pressure 144/85 H 128/88 144/85 H Pulse Oximetry 98 97 97 12/31/19 02:00 12/31/19 05:58 Temperature 36.8 C 36.7 C Pulse Rate 93 93 Respiratory Rate 20 20 Blood Pressure 132/81 136/82 Pulse Oximetry 92 95 Intake/Output Intake/Output: Intake & Output 12/28/19 12/29/19 12/30/19 12/31/19 23:59 23:59 23:59 23:59 Intake Total 3200 3000 3400 1000 Output Total 3975 1100 1950 1301 Balance -775 1900 1450 -301 Meds/Results Medications: Active Medications Generic Name Dose Route Start Last Admin Trade Name Freq PRN Reason Stop Dose Admin Dextrose 12.5 gm 12/25/19 22:36 Dextrose 50% 25 Gm/50 Ml Syringe IV PUSH PRN PRN Hypoglycemia Protocol Glucagon 1 mg 12/25/19 22:36 Glucagon For Inj 1 Mg Vial IM PRN PRN Hypoglycemia Protocol Hydromorphone HCl 0.5 mg 12/29/19 17:34 Hydromorphone Hcl Inj (*Crx) 1 Mg/Ml Syr IV PUSH Q2H PRN Pain Rated 4-6 Hydromorphone HCl 1 mg 12/29/19 17:33 12/30/19 04:21 Hydromorphone Hcl Inj (*Crx) 1 Mg/Ml Syr IV PUSH 1 mg Q2H PRN Administration Pain Rated 7-10 Lactated Ringer's 1,000 mls @ 125 mls/hr 12/25/19 21:10 12/31/19 08:23 Lr - Lactated Ringers Iv IV CONT 125 mls/hr .Q8H MACK Administration Dextrose 1,000 mls @ 100 mls/hr 12/25/19 22:36 Dextrose 5% 1,000 Ml IVPB PRN PRN Hypoglycemia Protocol Acetaminophen 1,000 mg in 100 mls @ 400 mls/hr 12/31/19 07:30 12/31/19 10:22 Ofirmev 1,000 Mg Ivpb IVPB 12/31/19 23:57 400 mls/hr Q6H PRN Administration Pain Rated 1-3 Insulin Aspart 2 - 5 units 12/26/19 00:00 12/31/19 06:45 Insulin Aspart (*Bkc) 100 Units/Ml SUB-Q Not Given Q6HR [facility] Protocol Ondansetron HCl 4 mg 12/25/19 21:10 12/26/19 12:00 Ondansetron Inj 4 Mg/2 Ml Vial IV PUSH 4 mg Q4H PRN Administration Nausea Radiology Results: ITS Impressions Abdomen/Pelvis CT 12/25/19 20:19 IMPRESSION: 1. Small bowel obstruction with transition point in the distal ileum. 2. 4.4 cm kidney mass, which may be a hemorrhagic cyst or a solid neoplasm. Abdomen CT without and with contrast is recommended. Small Bowel X-Ray 12/26/19 14:04 IMPRESSION: 1. Small bowel obstruction. Abdomen CT 12/28/19 14:40 IMPRESSION: 1. Enhancing 4.4 cm left kidney mass, consistent with solid neoplasm such as renal cell carcinoma. 2. Small bowel obstruction. Abdomen X-Ray 12/29/19 08:54 IMPRESSION: Small bowel obstruction. Labs Labs: Laboratory Results - last 24 hr 12/30/19 12/30/19 12/30/19 11:34 17:23 21:
[2019-12-31 11:48] LABS: Glucose Point of Care 173 (65-105)
[2019-12-31 14:00] VITALS: BP 127/95; PULSE 83; RESP 20; TEMP 36.9; O2SAT 95
[2019-12-31 17:09] LABS: Glucose Point of Care 149 (65-105)
[2019-12-31 18:00] VITALS: BP 125/76; PULSE 90; RESP 18; TEMP 36.6; O2SAT 97
[2019-12-31 20:08] VITALS: BP 139/78; PULSE 91; RESP 16; TEMP 36.6; O2SAT 95
[2020-01-01 02:00] VITALS: BP 143/76; PULSE 90; RESP 14; TEMP 36.6; O2SAT 96
[2020-01-01 04:04] LABS: Glucose Point of Care 186 (65-105)
[2020-01-01] MEDS: LACTATED RINGERS 1,000 ML 125 ML IV CONT ×2 (04:52→16:20)
[2020-01-01 05:36] LABS: Basophils Percent Auto 0.4 % (0.2-1.2); Eosinophils Absolute Auto 0.5 K/mm3 (0-0.3); Eosinophils Percent Auto 5.9 % (0-4.4); Hematocrit 44.6 % (42.0-52.0); Hemoglobin 14.3 g/dL (14.0-18.0); Immature Granulocyte Absolute 0.03 K/mm3 (0.00-0.031); Immature Granulocyte Percent A 0.4 % (0-0.5); Lymphocytes Absolute Auto 1.79 K/mm3 (0.9-3.2); Lymphocytes Percent Auto 21.4 % (18.3-44.2); Mean Corpuscular HGB Conc 32.1 g/dl (32-36); Mean Corpuscular Hemoglobin 29.4 pg (26-34); Mean Corpuscular Volume 91.6 fl (80-100); Mean Platelet Volume 10.6 fl (7.4-10.4); Monocytes Absolute Auto 0.7 K/mm3 (0.1-0.6); Monocytes Percent Auto 7.8 % (2.6-8.5); Neutrophils Absolute Auto 5.4 K/mm3 (1.3-6.7); Neutrophils Percent Auto 64.1 % (45.5-73.1); Platelet Count Result 195 k/mm3 (150-375); Red Blood Count 4.87 M/mm3 (4.6-6.20); Red Cell Distribution Width 12.7 % (11.5-14.5); White Blood Count 8.4 K/mm3 (4.5-10.0)
[2020-01-01 05:42] VITALS: BP 136/88; PULSE 86; RESP 18; TEMP 36.5; O2SAT 97
[2020-01-01 05:46] LABS: Anion Gap 11 mmol/L (8-16); Blood Urea Nitrogen 17 mg/dL (9-20); Calcium 9.4 mg/dL (8.4-10.2); Carbon Dioxide 33 mmol/L (22-30); Chloride 102 mmol/L (98-107); Estimated CRCL calculation 103 ml/min; Estimated Glomerular Filt Rate > 60; Glucose 171 mg/dL (75-110); Potassium 3.6 mmol/L (3.4-5.0); Sodium 146 mmol/L (137-145)
[2020-01-01 06:21] LABS: Glucose Point of Care 155 (65-105)
[2020-01-01 10:00] VITALS: BP 144/86; PULSE 81; RESP 16; TEMP 36.4; O2SAT 98
--- NOTE | 2020-01-01 11:33 | PCNFU ---
Nutrition Follow-Up Complete: Altered GI function as related to Small Bowel Obstruction as evidenced by NPO x 5 days. Goal: Meet estimated nutritional needs Limited Progress towards goal. We will continue current goal. Pt current nutrition is NPO x 8 days. Nutrition recommendation: PPN or advance diet as tolerated. Last recorded weight is 132.3 kg. No new weight reported. Bowel Motility:hypoactive bowel sounds Labs Reviewed: Glu 171,Na 146 Meds Noted: LR 1000ml @ 100 ml/hr Additional Notes: Nutrition follow up today. Patient is up, walking halls. POD 3 exploratory lap. Patient is a high nutritional risk-Day 8 NPO. Recommend started PPN- Clinimix E 4.25/5 at 80ml/hr and 250 ml of 20% Lipid Emulsion or advancing diet as tolerated. Monitoring: Will monitor every 3 days.
[2020-01-01 12:07] LABS: Glucose Point of Care 162 (65-105)
--- NOTE | 2020-01-01 12:44 | PM.IMPN ---
Progress Note: A&P Assessment and Plan (1) Renal mass: Code(s): N28.89 - Other specified disorders of kidney and ureter Status: Acute Assessment and Plan: -Urology evaluated and will follow-up outpatient for left partial nephrectomy in the future (2) SBO (small bowel obstruction): Code(s): K56.609 - Unspecified intestinal obstruction, unspecified as to partial versus complete obstruction Status: Acute Assessment and Plan: - postop day 3 ex lap and adhesiolysis. surgeon Dr. Graf. - NG tube in place, still awaiting bowel movements or gas - patient has good attitude about walking and getting his bowels moving - pain control: Tylenol - nausea: Zofran (3) BMI 39.0-39.9,adult: Code(s): Z68.39 - Body mass index [BMI] 39.0-39.9, adult Status: Acute (4) Type 2 diabetes mellitus: Qualifiers: Diabetes mellitus long-term insulin use: without ferry terminal supervisor use Diabetes mellitus complication status: without complication Qualified Code(s): E11.9 - Type 2 diabetes mellitus without complications Code(s): E11.9 - Type 2 diabetes mellitus without complications Status: Chronic Assessment and Plan: - continue low-dose sliding scale insulin while NPO - home Jardiance, metformin, Lantus, ozempic (5) Hyperlipidemia: Qualifiers: Hyperlipidemia type: unspecified Qualified Code(s): E78.5 - Hyperlipidemia, unspecified Code(s): E78.5 - Hyperlipidemia, unspecified Status: Chronic Assessment and Plan: holding statin while NPO (6) Hypertension: Qualifiers: Hypertension type: unspecified Qualified Code(s): I10 - Essential (primary) hypertension Code(s): I10 - Essential (primary) hypertension Status: Chronic Assessment and Plan: -holding p.o. antihypertensives, stable, will restart when p.o. intake is restarted Additional Plan Diet: NPO DVTppx: early mobilization, patient is very encouraged to walk around Code status: Full Code Disposition: medical floor, plan for home Subjective Date/time seen: 01/01/20 12:44 Patient examined. Patient clinically has no complaints, still has not passed gas or stool. He is walking around his room many times. Blood sugars have been stable since he is not eating anything. No change to plan, continue supportive care and wait for post-op ileus to resolve. patient denies fever, chills, nausea, vomiting, abdominal pain, dysuria. Review of Systems Review of Systems: All systems reviewed & are unremarkable except as noted in HPI and below Exam Narrative: Exam Narrative: - GENERAL: Well-nourished male in no acute distress. - EYES: EOMI. Anicteric. - HENT: Moist mucous membranes. No scleral icterus. NG tube with bilious output, clamped while walking - LUNGS: Clear to auscultation bilaterally, no wheezing, rhonchi, or rales. - CARDIOVASCULAR: Regular rate and rhythm. No murmur. No JVD. - ABDOMEN: Soft, nontender, dressing clean/dry /intact, Absent bowel sounds on right side of abdomen, hypoactive bowel sounds on left side of abdomen. - EXTREMITIES: right lower extremity chronic swelling, extremities externally rotated. Peripheral pulses 2+. Right leg lower extremity old surgical scars. Non-tender. - NEUROLOGIC: No focal neurological deficits. CN II-XII grossly intact. - PSYCHIATRIC: Awake, Alert and oriented x 3. Appropriate mood and affect. - SKIN: No rashes or lesions. Warm. - LYMPH: No cervical lymphadenopathy. Objective Data Vital Signs Vital Signs: Vital Signs - 24 hr 12/31/19 14:00 12/31/19 18:00 12/31/19 20:08 Temperature 36.9 C 36.6 C 36.6 C Pulse Rate 83 90 91 Respiratory Rate 20 18 16 Blood Pressure 127/95 H 125/76 139/78 Pulse Oximetry 95 97 95 01/01/20 02:00 01/01/20 05:42 01/01/20 10:00 Temperature 36.6 C 36.5 C 36.4 C Pulse Rate 90 86 81 Respiratory Rate 14 18 16 Blood Pressure 143/76 H 136/88 144/86 H Pulse Oximetry 96 97 98 Intake/Output
--- NOTE | 2020-01-01 13:14 | PM.PNGS ---
Progress Note: A&P Assessment and Plan (1) SBO (small bowel obstruction): Code(s): K56.609 - Unspecified intestinal obstruction, unspecified as to partial versus complete obstruction Status: Acute Assessment and Plan: High NG output overnight (almost 2L). Continue to await return of bowel function. Continue bowel rest and NG decompression. Encouraged to sit up in chair and increase activity/ambulation as tolerated. Encouraged IS. (2) Renal mass: Code(s): N28.89 - Other specified disorders of kidney and ureter Status: Acute Assessment and Plan: Will need partial nephrectomy per urology Additional Plan Discussed patient's plan of care with Dr. Graf. Subjective Subjective Date/Time Seen: 01/01/20 12:05 Post Op day: 3 (Ex lap with adhesiolysis, reduction of internal hernia) Patient reports: no new complaints, voiding w/o difficulty, no flatus and no bowel movement Interval history: Patient seen and examined sitting up in the chair today. He denies abdominal pain or nausea. States he has been able to ambulate in the halls, and did this four times yesterday. No flatus or BM. No other complaints at this time. Review of Systems Review of Systems: All systems reviewed & are unremarkable except as noted in HPI and below Constitutional: Constitutional: Reports no additional constitutional complaints, Denies chills and Denies fever(s) ENT: Denies dizziness and Denies headache(s) Cardiovascular: Cardiovascular: Reports no additional cardiovascular complaints, Denies chest pain and Denies dyspnea Respiratory: Respiratory: Reports no additional respiratory complaints, Denies cough and Denies dyspnea Gastrointestinal: Gastrointestinal: Reports as per HPI, Reports no additional gastrointestinal complaints and Denies abdominal pain Neurologic: Denies dizziness and Denies headache(s) Exam Const: General: comfortable, no acute distress, alert and awake Orientation/consciousness: patient oriented x3 Resp: Effort & Inspection: normal respiratory effort Auscultation: clear to auscultation bilaterally Cardio: Rate: regular rate Rhythm: regular rhythm GI: Inspection: distended and incision (minimal serosang. drainage, no signs of infection, kiel intact) GI Palp: Yes Soft to palpation, Yes Tenderness to palpation present (GI) (incisional, mild), No Guarding due to palpation present (GI) and No Rebound tenderness present Auscultation: Hypoactive bowel sounds present Skin: General skin exam: normal color Neuro: General: patient oriented x3 and moves all extremities Speech: normal speech Extrem: General: normal to inspection, full ROM, no calf tenderness and no edema Psych: Appearance: grossly normal Mental Status: mental status grossly normal Attitude: cooperative Thought process: Normal thought process present Objective Data Vital Signs Vital Signs: Vital Signs - 24 hr 12/31/19 14:00 12/31/19 18:00 12/31/19 20:08 Temperature 98.4 F 97.9 F 97.8 F Pulse Rate 83 90 91 Respiratory Rate 20 18 16 Blood Pressure 127/95 H 125/76 139/78 Pulse Oximetry 95 97 95 01/01/20 02:00 01/01/20 05:42 01/01/20 10:00 Temperature 97.9 F 97.7 F 97.6 F Pulse Rate 90 86 81 Respiratory Rate 14 18 16 Blood Pressure 143/76 H 136/88 144/86 H Pulse Oximetry 96 97 98 Intake/Output Intake/Output: Intake & Output 12/29/19 12/30/19 12/31/19 01/01/20 23:59 23:59 23:59 23:59 Intake Total 3000 3400 2100 1100 Output Total 1100 1950 2251 2400 Balance 1900 1450 -151 -1300 Meds/Results Medications: Active Medications Generic Name Dose Route Start Last Admin Trade Name Freq PRN Reason Stop Dose Admin Dextrose 12.5 gm 12/25/19 22:36 Dextrose 50% 25 Gm/50 Ml Syringe IV PUSH PRN PRN Hypoglycemia Protocol Glucagon 1 mg 12/25/19 22:36 Glucagon For Inj 1 Mg Vial IM PRN PRN Hypoglycemia Protocol Hydromorphone HCl 0.5 mg 12/29/19 17:34 Hydromorphone Hcl
[2020-01-01 14:00] VITALS: BP 145/83; PULSE 92; RESP 16; TEMP 36.6; O2SAT 98
[2020-01-01 18:00] VITALS: BP 141/77; PULSE 90; RESP 16; TEMP 37.2; O2SAT 97
[2020-01-01 18:08] LABS: Glucose Point of Care 161 (65-105)
[2020-01-01 21:19] VITALS: BP 140/85; PULSE 83; RESP 16; TEMP 36.4; O2SAT 95
[2020-01-02] VITALS (7 sets, daily range): BP systolic 131–160; BP diastolic 76–94; PULSE 77–109; RESP 16–18; TEMP 36.2–37.1; O2SAT 94–99
[2020-01-02 00:10] LABS: Glucose Point of Care 162 (65-105)
[2020-01-02] MEDS: LACTATED RINGERS 1,000 ML 125 ML IV CONT ×3 (00:25→17:09)
[2020-01-02 06:36] LABS: Glucose Point of Care 173 (65-105)
--- NOTE | 2020-01-02 07:49 | PM.IMPN ---
Progress Note: A&P Assessment and Plan (1) Renal mass: Code(s): N28.89 - Other specified disorders of kidney and ureter Status: Acute Assessment and Plan: -Urology evaluated and will follow-up outpatient for left partial nephrectomy in the future (2) SBO (small bowel obstruction): Code(s): K56.609 - Unspecified intestinal obstruction, unspecified as to partial versus complete obstruction Status: Acute Assessment and Plan: - postop day 4 ex lap and adhesiolysis. surgeon Dr. Graf. - NG tube in place with bilious output - patient has good attitude about walking and getting his bowels moving - small amounts of gas came out yesterday, he may have a slow recover, surgery to advance diet - pain control: Tylenol - nausea: Zofran (3) BMI 39.0-39.9,adult: Code(s): Z68.39 - Body mass index [BMI] 39.0-39.9, adult Status: Acute (4) Type 2 diabetes mellitus: Qualifiers: Diabetes mellitus termite exterminator helper insulin use: without termite exterminator helper use Diabetes mellitus complication status: without complication Qualified Code(s): E11.9 - Type 2 diabetes mellitus without complications Code(s): E11.9 - Type 2 diabetes mellitus without complications Status: Chronic Assessment and Plan: - continue low-dose sliding scale insulin while NPO - home Jardiance, metformin, Lantus, ozempic (5) Hyperlipidemia: Qualifiers: Hyperlipidemia type: unspecified Qualified Code(s): E78.5 - Hyperlipidemia, unspecified Code(s): E78.5 - Hyperlipidemia, unspecified Status: Chronic Assessment and Plan: holding statin while NPO (6) Hypertension: Qualifiers: Hypertension type: unspecified Qualified Code(s): I10 - Essential (primary) hypertension Code(s): I10 - Essential (primary) hypertension Status: Chronic Assessment and Plan: -holding p.o. antihypertensives, stable, will restart when p.o. intake is restarted Additional Plan Diet: NPO DVTppx: early mobilization, patient is very encouraged to walk around Code status: Full Code Disposition: medical floor, plan for home Subjective Date/time seen: 01/02/20 07:49 Patient examined. He is frustrated that bowels are moving. He stays past little bit of gas yesterday while walking. He continues to walk as much as possible. NG tube to suction with bilious output. He has more bowel sounds but still hypoactive. His dressing was changed yesterday. Patient has no pain is otherwise doing well. Patient denies fever, chills, nausea, vomiting, diarrhea. Review of Systems Review of Systems: All systems reviewed & are unremarkable except as noted in HPI and below Exam Narrative: Exam Narrative: - GENERAL: Well-nourished male in no acute distress. - EYES: EOMI. Anicteric. - HENT: Moist mucous membranes. No scleral icterus. NG tube with bilious output to suction - LUNGS: Clear to auscultation bilaterally, no wheezing, rhonchi, or rales. - CARDIOVASCULAR: Regular rate and rhythm. No murmur. No JVD. - ABDOMEN: Soft, nontender,midline incision scar, new dressing clean/dry /intact, hypoactive bowel sounds throughout - EXTREMITIES: right lower extremity chronic swelling, extremities externally rotated. Peripheral pulses 2+. Right leg lower extremity old surgical scars. Non-tender. - NEUROLOGIC: No focal neurological deficits. CN II-XII grossly intact. - PSYCHIATRIC: Awake, Alert and oriented x 3. Appropriate mood and affect. - SKIN: No rashes or lesions. Warm. - LYMPH: No cervical lymphadenopathy. Objective Data Vital Signs Vital Signs: Vital Signs - 24 hr 01/01/20 10:00 01/01/20 14:00 01/01/20 18:00 Temperature 36.4 C 36.6 C 37.2 C Pulse Rate 81 92 90 Respiratory Rate 16 16 16 Blood Pressure 144/86 H 145/83 H 141/77 H Pulse Oximetry 98 98 97 01/01/20 21:19 01/02/20 02:00 01/02/20 06:00 Temperature 36.4 C L 36.4 C 36.2 C L Pulse Rate 83 109 H 86 Respiratory Rate 16 16 16 Blood Pres
--- NOTE | 2020-01-02 10:08 | PM.PNGS ---
Progress Note: A&P Assessment and Plan (1) SBO (small bowel obstruction): Code(s): K56.609 - Unspecified intestinal obstruction, unspecified as to partial versus complete obstruction Status: Acute Assessment and Plan: exam improved, start Reglan, clamp NG, cont to encourage OOB/IS (2) Renal mass: Code(s): N28.89 - Other specified disorders of kidney and ureter Status: Acute Assessment and Plan: will need further intervention per urology in the future Subjective Subjective Date/Time Seen: 01/02/20 10:08 feels ok, no N/V, no pain, + small amount of flatus Review of Systems Review of Systems: All systems reviewed & are unremarkable except as noted in HPI and below Exam Const: General: cooperative, comfortable and no acute distress Orientation/consciousness: patient oriented x3 Resp: Effort & Inspection: normal respiratory effort Auscultation: clear to auscultation bilaterally Cardio: Rate: regular rate Rhythm: regular rhythm GI: Inspection: normal to inspection and non-distended GI Palp: Yes abdominal tenderness, Yes Soft to palpation, No Tenderness to palpation present (GI) and No Guarding due to palpation present (GI) Other: soft, sl dist, mayito TTP, incision C/D/I, small amount of serous drainage Objective Data Vital Signs Vital Signs: Vital Signs - 24 hr 01/01/20 14:00 01/01/20 18:00 01/01/20 21:19 Temperature 36.6 C 37.2 C 36.4 C L Pulse Rate 92 90 83 Respiratory Rate 16 16 16 Blood Pressure 145/83 H 141/77 H 140/85 Pulse Oximetry 98 97 95 01/02/20 02:00 01/02/20 06:00 Temperature 36.4 C 36.2 C L Pulse Rate 109 H 86 Respiratory Rate 16 16 Blood Pressure 131/86 142/94 H Pulse Oximetry 94 97 Intake/Output Intake/Output: Intake & Output 12/30/19 12/31/19 01/01/20 01/02/20 23:59 23:59 23:59 23:59 Intake Total 3400 2100 2100 2000 Output Total 1950 2251 3600 1800 Balance 1450 -151 -1500 200 Meds/Results Medications: Active Medications Generic Name Dose Route Start Last Admin Trade Name Freq PRN Reason Stop Dose Admin Dextrose 12.5 gm 12/25/19 22:36 Dextrose 50% 25 Gm/50 Ml Syringe IV PUSH PRN PRN Hypoglycemia Protocol Glucagon 1 mg 12/25/19 22:36 Glucagon For Inj 1 Mg Vial IM PRN PRN Hypoglycemia Protocol Hydromorphone HCl 0.5 mg 12/29/19 17:34 Hydromorphone Hcl Inj (*Crx) 1 Mg/Ml Syr IV PUSH Q2H PRN Pain Rated 4-6 Hydromorphone HCl 1 mg 12/29/19 17:33 12/30/19 04:21 Hydromorphone Hcl Inj (*Crx) 1 Mg/Ml Syr IV PUSH 1 mg Q2H PRN Administration Pain Rated 7-10 Lactated Ringer's 1,000 mls @ 125 mls/hr 12/25/19 21:10 01/02/20 08:00 Lr - Lactated Ringers Iv IV CONT 125 mls/hr .Q8H MACK Administration Dextrose 1,000 mls @ 100 mls/hr 12/25/19 22:36 Dextrose 5% 1,000 Ml IVPB PRN PRN Hypoglycemia Protocol Insulin Aspart 2 - 5 units 12/26/19 00:00 01/02/20 06:23 Insulin Aspart (*Bkc) 100 Units/Ml SUB-Q Not Given Q6HR [facility] Protocol Ondansetron HCl 4 mg 12/25/19 21:10 12/26/19 12:00 Ondansetron Inj 4 Mg/2 Ml Vial IV PUSH 4 mg Q4H PRN Administration Nausea Radiology Results: ITS Impressions Abdomen/Pelvis CT 12/25/19 20:19 IMPRESSION: 1. Small bowel obstruction with transition point in the distal ileum. 2. 4.4 cm kidney mass, which may be a hemorrhagic cyst or a solid neoplasm. Abdomen CT without and with contrast is recommended. Small Bowel X-Ray 12/26/19 14:04 IMPRESSION: 1. Small bowel obstruction. Abdomen CT 12/28/19 14:40 IMPRESSION: 1. Enhancing 4.4 cm left kidney mass, consistent with solid neoplasm such as renal cell carcinoma. 2. Small bowel obstruction. Abdomen X-Ray 12/29/19 08:54 IMPRESSION: Small bowel obstruction. Labs Labs: Laboratory Results - last 24 hr 01/01/20 01/01/20 01/02/20 11:56 18:04 00:05 POC Capillary Glucose 162 H 161 H 162 H
--- NOTE | 2020-01-02 11:42 | PCNFU ---
Nutrition Follow-Up Complete: Altered GI function as related to Small Bowel Obstruction as evidenced by NPO x 5 days. Goal: Meet estimated nutritional needs Limited progress on goal. We will continue current goal. Pt current nutrition is NPO x 9 days. Nutrition recommendation: PPN or advancing diet as tolerated. Last recorded weight is 132.3 kg. No new weights to report. Bowel Motility: No BM reported, gas reported 12/31. Labs Reviewed:Glu 171,Na 146 Meds Noted:Reglan,LR 1000 ml @ 125 ml/hr Additional Notes: Patient is currently Day 9 NPO. Spoke with nursing today, NGT to be clamped for 6 hours in hopes we can advance to a clear liquid diet. Nutrition Recommendations: If patient does not advance diet today. PPN is recommended. Patient is at high nutritional risk. Monitoring: Will monitor every 3 days.
[2020-01-02 12:08] LABS: Glucose Point of Care 189 (65-105)
[2020-01-02] MEDS: METOCLOPRAMIDE HCL INJ 10 MG/2 ML VIAL IV PUSH ×2 (12:25→17:10)
[2020-01-02 16:22] LABS: Glucose Point of Care 183 (65-105)
[2020-01-03] VITALS (10 sets, daily range): BP systolic 141–154; BP diastolic 76–100; PULSE 80–98; RESP 16–20; TEMP 36.7–37.2; O2SAT 94–99
[2020-01-03 00:05] LABS: Glucose Point of Care 168 (65-105)
[2020-01-03] MEDS: METOCLOPRAMIDE HCL INJ 10 MG/2 ML VIAL IV PUSH ×4 (00:06→17:54)
[2020-01-03] MEDS: LACTATED RINGERS 1,000 ML 125 ML IV CONT (01:56)
[2020-01-03] MEDS: INSULIN ASPART (*BKC) 100 UNITS/ML SUB-Q (06:16)
[2020-01-03 06:33] LABS: Glucose Point of Care 233 (65-105)
--- NOTE | 2020-01-03 08:54 | PM.PNGS ---
Progress Note: A&P Assessment and Plan (1) SBO (small bowel obstruction): Code(s): K56.609 - Unspecified intestinal obstruction, unspecified as to partial versus complete obstruction Status: Acute Assessment and Plan: Advance to full liquids today Possibly home in next 1-2 days if improving (2) BMI 39.0-39.9,adult: Code(s): Z68.39 - Body mass index [BMI] 39.0-39.9, adult Status: Acute Subjective Subjective Date/Time Seen: 01/03/20 08:54 Patient has had 4 BMs since yesterday. Tolerating clear liquids. Pain controlled. Ambulating without much difficulty. Exam GI: Inspection: non-distended and incision (C/D/I) GI Palp: Yes Soft to palpation and No Tenderness to palpation present (GI) Auscultation: normal bowel sounds Objective Data Vital Signs Vital Signs: Vital Signs - 24 hr 01/02/20 10:00 01/02/20 10:16 01/02/20 14:00 Temperature 36.6 C 37.1 C Pulse Rate 77 104 H 86 Respiratory Rate 16 18 16 Blood Pressure 149/86 H 157/81 H Pulse Oximetry 99 98 98 01/02/20 18:00 01/02/20 22:00 01/03/20 02:00 Temperature 36.6 C 37.1 C 37.2 C Pulse Rate 96 83 84 Respiratory Rate 16 16 18 Blood Pressure 160/79 H 149/76 H 154/76 H Pulse Oximetry 94 97 97 01/03/20 02:12 01/03/20 06:00 Temperature 36.8 C Pulse Rate 90 Respiratory Rate 18 Blood Pressure 142/84 H Pulse Oximetry 94 97 Intake/Output Intake/Output: Intake & Output 12/31/19 01/01/20 01/02/20 01/03/20 23:59 23:59 23:59 23:59 Intake Total 2100 2100 3990 2080 Output Total 2251 3600 2250 900 Balance -151 -1500 1740 1180 Meds/Results Medications: Active Medications Generic Name Dose Route Start Last Admin Trade Name Freq PRN Reason Stop Dose Admin Acetaminophen 650 mg 01/03/20 06:49 Acetaminophen 325 Mg Tablet PO Q4H PRN Mild Pain (1-3) or Fever Hydrocodone Bitart/Acetaminophen 1 tab 01/03/20 06:49 Hydrocodone/Acetaminophen (*Crx) 10-325 Mg Tablet PO Q4H PRN Pain Rated 7-10 Hydrocodone Bitart/Acetaminophen 1 tab 01/03/20 06:49 Hydrocodone/Acetaminophen (*Crx) 5-325 Mg Tablet PO Q4H PRN Pain Rated 4-6 Dextrose 12.5 gm 12/25/19 22:36 Dextrose 50% 25 Gm/50 Ml Syringe IV PUSH PRN PRN Hypoglycemia Protocol Glucagon 1 mg 12/25/19 22:36 Glucagon For Inj 1 Mg Vial IM PRN PRN Hypoglycemia Protocol Dextrose 1,000 mls @ 100 mls/hr 12/25/19 22:36 Dextrose 5% 1,000 Ml IVPB PRN PRN Hypoglycemia Protocol Insulin Aspart 2 - 5 units 12/26/19 00:00 01/03/20 06:16 Insulin Aspart (*Bkc) 100 Units/Ml SUB-Q 2 units Q6HR MACK Administration Protocol Metoclopramide HCl 10 mg 01/02/20 12:00 01/03/20 06:16 Metoclopramide Hcl Inj 10 Mg/2 Ml Vial IV PUSH 10 mg Q6HR MACK Administration Ondansetron HCl 4 mg 12/25/19 21:10 12/26/19 12:00 Ondansetron Inj 4 Mg/2 Ml Vial IV PUSH 4 mg Q4H PRN Administration Nausea Radiology Results: ITS Impressions Abdomen/Pelvis CT 12/25/19 20:19 IMPRESSION: 1. Small bowel obstruction with transition point in the distal ileum. 2. 4.4 cm kidney mass, which may be a hemorrhagic cyst or a solid neoplasm. Abdomen CT without and with contrast is recommended. Small Bowel X-Ray 12/26/19 14:04 IMPRESSION: 1. Small bowel obstruction. Abdomen CT 12/28/19 14:40 IMPRESSION: 1. Enhancing 4.4 cm left kidney mass, consistent with solid neoplasm such as renal cell carcinoma. 2. Small bowel obstruction. Abdomen X-Ray 12/29/19 08:54 IMPRESSION: Small bowel obstruction. Labs Labs: Laboratory Results - last 24 hr 01/02/20 01/02/20 01/03/20 12:05 16:18 00:02 POC Capillary Glucose 189 H 183 H 168 H 01/03/20 06:14 POC Capillary Glucose 233 H Quality VTE Prophylaxis VTE prophylaxis: mechanical ordered
[2020-01-03 11:42] LABS: Glucose Point of Care 193 (65-105)
--- NOTE | 2020-01-03 12:50 | PM.IMPN ---
Progress Note: A&P Assessment and Plan (1) Renal mass: Code(s): N28.89 - Other specified disorders of kidney and ureter Status: Acute Assessment and Plan: -Urology evaluated and will follow-up outpatient for left partial nephrectomy in the future (2) SBO (small bowel obstruction): Code(s): K56.609 - Unspecified intestinal obstruction, unspecified as to partial versus complete obstruction Status: Acute Assessment and Plan: - postop day 5 ex lap and adhesiolysis. surgeon Dr. Graf. - 4 bowel movements yesterday after starting Reglan - Patient tolerating full liquid diet will advance as per surgery, plan for discharge tomorrow - patient has good attitude about walking and getting his bowels moving - pain control: Tylenol - nausea: Zofran (3) BMI 39.0-39.9,adult: Code(s): Z68.39 - Body mass index [BMI] 39.0-39.9, adult Status: Acute (4) Type 2 diabetes mellitus: Qualifiers: Diabetes mellitus fdc insulin use: without fdc use Diabetes mellitus complication status: without complication Qualified Code(s): E11.9 - Type 2 diabetes mellitus without complications Code(s): E11.9 - Type 2 diabetes mellitus without complications Status: Chronic Assessment and Plan: - continue low-dose sliding scale insulin while NPO - home Jardiance, metformin, Lantus, ozempic, will restart on discharge (5) Hyperlipidemia: Qualifiers: Hyperlipidemia type: unspecified Qualified Code(s): E78.5 - Hyperlipidemia, unspecified Code(s): E78.5 - Hyperlipidemia, unspecified Status: Chronic Assessment and Plan: holding statin while NPO, will restart on discharge (6) Hypertension: Qualifiers: Hypertension type: unspecified Qualified Code(s): I10 - Essential (primary) hypertension Code(s): I10 - Essential (primary) hypertension Status: Chronic Assessment and Plan: -holding p.o. antihypertensives, stable, will restart on discharge Additional Plan Diet: full liquid diet, advancing as tolerated DVTppx: early mobilization, patient is very encouraged to walk around Code status: Full Code Disposition: medical floor, plan for home tomorrow Subjective Date/time seen: 01/03/20 12:50 Patient examined. postop day 5. Yesterday he was started on Reglan. patient had 4 bowel movements yesterday. He has been advance to full liquids. Surgeon told him to discharge tomorrow if he tolerates advancing his diet. Review of Systems Review of Systems: All systems reviewed & are unremarkable except as noted in HPI and below Exam Narrative: Exam Narrative: - GENERAL: Well-nourished male in no acute distress. - EYES: EOMI. Anicteric. - HENT: Moist mucous membranes. No scleral icterus. - LUNGS: Clear to auscultation bilaterally, no wheezing, rhonchi, or rales. - CARDIOVASCULAR: Regular rate and rhythm. No murmur. No JVD. - ABDOMEN: Soft, nontender,midline incision scar, towel dressing clean/dry /intact, bowel sounds present - EXTREMITIES: right lower extremity chronic swelling, extremities externally rotated. Peripheral pulses 2+. Right leg lower extremity old surgical scars. Non-tender. - NEUROLOGIC: No focal neurological deficits. CN II-XII grossly intact. - PSYCHIATRIC: Awake, Alert and oriented x 3. Appropriate mood and affect. - SKIN: No rashes or lesions. Warm. - LYMPH: No cervical lymphadenopathy. Objective Data Vital Signs Vital Signs: Vital Signs - 24 hr 01/02/20 14:00 01/02/20 18:00 01/02/20 22:00 Temperature 37.1 C 36.6 C 37.1 C Pulse Rate 86 96 83 Respiratory Rate 16 16 16 Blood Pressure 157/81 H 160/79 H 149/76 H Pulse Oximetry 98 94 97 01/03/20 02:00 01/03/20 02:12 01/03/20 06:00 Temperature 37.2 C 36.8 C Pulse Rate 84 90 Respiratory Rate 18 18 Blood Pressure 154/76 H 142/84 H Pulse Oximetry 97 94 97 01/03/20 09:54 01/03/20 10:03 Temperature 36.7 C Pulse Rate 80 98 Respirator
[2020-01-03] MEDS: ACETAMINOPHEN 325 MG TABLET 650 MG PO (15:36)
[2020-01-03 17:08] LABS: Glucose Point of Care 188 (65-105)
[2020-01-03] MEDS: METOPROLOL TARTRATE 50 MG TAB PO (20:44)
[2020-01-04] VITALS (8 sets, daily range): BP systolic 113–152; BP diastolic 71–83; PULSE 65–85; RESP 16–18; TEMP 36.1–37.2; O2SAT 94–98
[2020-01-04] MEDS: METOCLOPRAMIDE HCL INJ 10 MG/2 ML VIAL IV PUSH ×5 (00:14→23:51)
[2020-01-04 00:19] LABS: Glucose Point of Care 179 (65-105)
[2020-01-04 06:27] LABS: Glucose Point of Care 160 (65-105)
[2020-01-04] MEDS: ATORVASTATIN 40 MG TABLET PO (08:27)
[2020-01-04] MEDS: LOSARTAN POTASSIUM 100 MG TABLET PO (08:27)
[2020-01-04] MEDS: hydroCHLOROthiazide 25 MG TABLET PO (08:27)
[2020-01-04] MEDS: METOPROLOL TARTRATE 50 MG TAB PO ×2 (08:28→20:08)
--- NOTE | 2020-01-04 09:59 | PM.PNGS ---
Progress Note: A&P Assessment and Plan (1) SBO (small bowel obstruction): Code(s): K56.609 - Unspecified intestinal obstruction, unspecified as to partial versus complete obstruction Status: Acute Assessment and Plan: Will try soft diet today and also will start MiraLax daily Discussed with patient that I would like him to be tolerating regular diet and moving bowels before being ready to discharge (2) Renal mass: Code(s): N28.89 - Other specified disorders of kidney and ureter Status: Acute (3) BMI 39.0-39.9,adult: Code(s): Z68.39 - Body mass index [BMI] 39.0-39.9, adult Status: Acute Subjective Subjective Date/Time Seen: 01/04/20 10:00 Patient had episode of emesis yesterday afternoon. Didn't eat much for dinner and hasn't eaten breakfast yet. Still passing a little flatus but no BM since yesterday. No bloating or nausea currently. Exam GI: Inspection: non-distended and incision (C/D/I) GI Palp: Yes Soft to palpation and No Tenderness to palpation present (GI) Auscultation: normal bowel sounds Objective Data Vital Signs Vital Signs: Vital Signs - 24 hr 01/03/20 10:03 01/03/20 14:00 01/03/20 18:00 Temperature 36.9 C 36.9 C Pulse Rate 98 82 98 Respiratory Rate 18 18 20 Blood Pressure 154/91 H 153/100 H Pulse Oximetry 96 97 99 01/03/20 18:55 01/03/20 20:44 01/03/20 22:00 Temperature 36.9 C Pulse Rate 88 90 90 Respiratory Rate 16 Blood Pressure 141/95 H 144/85 H Pulse Oximetry 97 96 01/04/20 02:00 01/04/20 06:00 01/04/20 08:28 Temperature 37.2 C 36.9 C Pulse Rate 72 71 74 Respiratory Rate 16 16 Blood Pressure 137/77 139/74 Pulse Oximetry 97 94 Intake/Output Intake/Output: Intake & Output 01/01/20 01/02/20 01/03/20 01/04/20 23:59 23:59 23:59 23:59 Intake Total 2100 3990 3280 350 Output Total 3600 2250 2150 500 Balance -1500 1740 1130 -150 Meds/Results Medications: Active Medications Generic Name Dose Route Start Last Admin Trade Name Freq PRN Reason Stop Dose Admin Acetaminophen 650 mg 01/03/20 06:49 01/03/20 15:36 Acetaminophen 325 Mg Tablet PO 650 mg Q4H PRN Administration Mild Pain (1-3) or Fever Hydrocodone Bitart/Acetaminophen 1 tab 01/03/20 06:49 Hydrocodone/Acetaminophen (*Crx) 10-325 Mg Tablet PO Q4H PRN Pain Rated 7-10 Hydrocodone Bitart/Acetaminophen 1 tab 01/03/20 06:49 Hydrocodone/Acetaminophen (*Crx) 5-325 Mg Tablet PO Q4H PRN Pain Rated 4-6 Atorvastatin Calcium 40 mg 01/04/20 09:00 01/04/20 08:27 Atorvastatin 40 Mg Tablet PO 40 mg DAILY MACK Administration Dextrose 12.5 gm 12/25/19 22:36 Dextrose 50% 25 Gm/50 Ml Syringe IV PUSH PRN PRN Hypoglycemia Protocol Glucagon 1 mg 12/25/19 22:36 Glucagon For Inj 1 Mg Vial IM PRN PRN Hypoglycemia Protocol Hydrochlorothiazide 25 mg 01/04/20 09:00 01/04/20 08:27 Hydrochlorothiazide 25 Mg Tablet PO 25 mg DAILY MACK Administration Dextrose 1,000 mls @ 100 mls/hr 12/25/19 22:36 Dextrose 5% 1,000 Ml IVPB PRN PRN Hypoglycemia Protocol Insulin Aspart 2 - 5 units 12/26/19 00:00 01/04/20 06:19 Insulin Aspart (*Bkc) 100 Units/Ml SUB-Q Not Given Q6HR MACK Protocol Losartan Potassium 100 mg 01/04/20 09:00 01/04/20 08:27 Losartan Potassium 100 Mg Tablet PO 100 mg DAILY MACK Administration Metoclopramide HCl 10 mg 01/02/20 12:00 01/04/20 06:17 Metoclopramide Hcl Inj 10 Mg/2 Ml Vial IV PUSH 10 mg Q6HR MACK Administration Metoprolol Tartrate 50 mg 01/03/20 21:00 01/04/20 08:28 Metoprolol Tartrate 50 Mg Tab PO 50 mg Q12HR MACK Administration Ondansetron HCl 4 mg 12/25/19 21:10 12/26/19 12:00 Ondansetron Inj 4 Mg/2 Ml Vial IV PUSH 4 mg Q4H PRN Administration Nausea Radiology Results: ITS Impressions Abdomen/Pelvis CT 12/25/19 20:19 IMPRESSION: 1. Small bowel obstruction with trans
[2020-01-04 10:07] LABS: Glucose Point of Care 154 (65-105)
--- NOTE | 2020-01-04 10:44 | PM.IMPN ---
Progress Note: A&P Assessment and Plan (1) Renal mass: Code(s): N28.89 - Other specified disorders of kidney and ureter Status: Acute Assessment and Plan: -Urology evaluated and will follow-up outpatient for left partial nephrectomy in the future (2) SBO (small bowel obstruction): Code(s): K56.609 - Unspecified intestinal obstruction, unspecified as to partial versus complete obstruction Status: Acute Assessment and Plan: - postop day 6 ex lap and adhesiolysis. surgeon Dr. Graf. - Continue Reglan - surgery advancing to soft food diet - surgery team started patient on MiraLax - plan for discharge when he can tolerate regular diet - pain control: Tylenol - nausea: Zofran (3) BMI 39.0-39.9,adult: Code(s): Z68.39 - Body mass index [BMI] 39.0-39.9, adult Status: Acute (4) Type 2 diabetes mellitus: Qualifiers: Diabetes mellitus watermelon harvesting supervisor insulin use: without watermelon harvesting supervisor use Diabetes mellitus complication status: without complication Qualified Code(s): E11.9 - Type 2 diabetes mellitus without complications Code(s): E11.9 - Type 2 diabetes mellitus without complications Status: Chronic Assessment and Plan: - continue low-dose sliding scale insulin while NPO - home Jardiance, metformin, Lantus, ozempic, will restart on discharge (5) Hyperlipidemia: Qualifiers: Hyperlipidemia type: unspecified Qualified Code(s): E78.5 - Hyperlipidemia, unspecified Code(s): E78.5 - Hyperlipidemia, unspecified Status: Chronic Assessment and Plan: - restarted statin (6) Hypertension: Qualifiers: Hypertension type: unspecified Qualified Code(s): I10 - Essential (primary) hypertension Code(s): I10 - Essential (primary) hypertension Status: Chronic Assessment and Plan: - restarted antihypertensives Additional Plan Diet: diabetic, advanced to soft foods as per surgery team DVTppx: early mobilization, patient is very encouraged to walk around Code status: Full Code Disposition: medical floor, plan for home tomorrow Subjective Date/time seen: 01/04/20 10:44 Patient examined. Patient states yesterday he tolerated full liquid diet however the evening had an episode of emesis. I advised him that he may slowly need to advance diet. surgery dancing soft diets and starting MiraLax. Blood pressure medications have been restarted. For diabetes continue sliding scale insulin and when cleared by surgery can go home back on home diabetic regimen. Patient denies fever, chills, abdominal pain, chest pain, diarrhea, dyspnea. He is no longer nauseous, had episode of emesis last night. Review of Systems Review of Systems: All systems reviewed & are unremarkable except as noted in HPI and below Exam Narrative: Exam Narrative: - GENERAL: Well-nourished male in no acute distress. - EYES: EOMI. Anicteric. - HENT: Moist mucous membranes. No scleral icterus. No upper teeth. - LUNGS: Clear to auscultation bilaterally, no wheezing, rhonchi, or rales. - CARDIOVASCULAR: Regular rate and rhythm. No murmur. No JVD. - ABDOMEN: Soft, nontender,midline incision scar, towel dressing clean/dry /intact, bowel sounds present - EXTREMITIES: right lower extremity chronic swelling, extremities externally rotated. Peripheral pulses 2+. Right leg lower extremity old surgical scars. Non-tender. - NEUROLOGIC: No focal neurological deficits. CN II-XII grossly intact. - PSYCHIATRIC: Awake, Alert and oriented x 3. Appropriate mood and affect. - SKIN: No rashes or lesions. Warm. - LYMPH: No cervical lymphadenopathy. Objective Data Vital Signs Vital Signs: Vital Signs - 24 hr 01/03/20 14:00 01/03/20 18:00 01/03/20 18:55 Temperature 36.9 C 36.9 C Pulse Rate 82 98 88 Respiratory Rate 18 20 Blood Pressure 154/91 H 153/100 H 141/95 H Pulse Oximetry 97 99 97 01/03/20 20:44 01/03/20 22:00 01/04/20 02:00 Temperature 36.9 C 37.2 C
[2020-01-04] MEDS: polyethylene glycoL 3350 17 GM POWD.PACK PO (12:31)
[2020-01-04 17:03] LABS: Glucose Point of Care 195 (65-105)
[2020-01-04] MEDS: INSULIN ASPART (*BKC) 100 UNITS/ML SUB-Q (23:53)
[2020-01-04 23:55] LABS: Glucose Point of Care 211 (65-105)
[2020-01-05 02:00] VITALS: BP 121/79; PULSE 78; RESP 16; TEMP 36.4; O2SAT 96
[2020-01-05 06:00] VITALS: BP 134/74; PULSE 67; RESP 16; TEMP 36.1; O2SAT 98
[2020-01-05] MEDS: METOCLOPRAMIDE HCL INJ 10 MG/2 ML VIAL IV PUSH (06:02)
[2020-01-05 06:08] LABS: Glucose Point of Care 175 (65-105)
[2020-01-05] MEDS: hydroCHLOROthiazide 25 MG TABLET PO (08:44)
[2020-01-05] MEDS: ATORVASTATIN 40 MG TABLET PO (08:44)
[2020-01-05] MEDS: METOPROLOL TARTRATE 50 MG TAB PO (08:44)
[2020-01-05] MEDS: polyethylene glycoL 3350 17 GM POWD.PACK PO (08:45)
[2020-01-05] MEDS: LOSARTAN POTASSIUM 100 MG TABLET PO (08:45)
[2020-01-05 10:00] VITALS: BP 143/77; PULSE 70; RESP 16; TEMP 36.3; O2SAT 100
--- NOTE | 2020-01-05 10:07 | PM.DS ---
DS: Admitting Diagnosis Admitting Diagnosis Admitting Diagnosis: SBO DS: Discharge Diagnosis Discharge Diagnosis (1) Renal mass: Code(s): N28.89 - Other specified disorders of kidney and ureter Status: Acute Assessment and Plan: -Urology evaluated and will follow-up outpatient for left partial nephrectomy in the future (2) Hyperbilirubinemia: Code(s): E80.6 - Other disorders of bilirubin metabolism Status: Acute (3) SBO (small bowel obstruction): Code(s): K56.609 - Unspecified intestinal obstruction, unspecified as to partial versus complete obstruction Status: Acute Assessment and Plan: - postop day 7 ex lap and adhesiolysis. surgeon Dr. Graf. - was treated with Reglan and MiraLax to help move bowels - patient is tolerating regular diet with good bowel movements, patient is safe for discharge. - pain control: Tylenol - nausea: Zofran (4) History of femur fracture: Code(s): Z87.81 - Personal history of (healed) traumatic fracture Status: Acute (5) History of fracture of right ankle: Code(s): Z87.81 - Personal history of (healed) traumatic fracture Status: Acute (6) BMI 39.0-39.9,adult: Code(s): Z68.39 - Body mass index [BMI] 39.0-39.9, adult Status: Acute (7) Type 2 diabetes mellitus: Qualifiers: Diabetes mellitus complication status: without complication Diabetes mellitus terminal operations manager insulin use: without terminal operations manager use Qualified Code(s): E11.9 - Type 2 diabetes mellitus without complications Code(s): E11.9 - Type 2 diabetes mellitus without complications Status: Chronic Assessment and Plan: - home Jardiance, metformin, Lantus, ozempic, will restart on discharge (8) Hyperlipidemia: Qualifiers: Hyperlipidemia type: unspecified Qualified Code(s): E78.5 - Hyperlipidemia, unspecified Code(s): E78.5 - Hyperlipidemia, unspecified Status: Chronic Assessment and Plan: - restarted statin (9) Hypertension: Qualifiers: Hypertension type: unspecified Qualified Code(s): I10 - Essential (primary) hypertension Code(s): I10 - Essential (primary) hypertension Status: Chronic Assessment and Plan: - restarted antihypertensives Hydrochlorothiazide, metoprolol, losartan DS: Summary Hospital Course Reason for hospitalization: small-bowel obstruction Hospital Course: Patient is a 59-year-old male with past medical history hypertension, insulin-dependent type 2 diabetes who presents to the ED with nausea/ vomiting /abdominal distension. he was diagnosed with small-bowel obstruction and had Exploratory laparotomy with extensive lysis of adhesions and reduction of internal hernia by Dr. Graf on 12/29/2019. he had postop ileus which improved with Reglan and MiraLax, diet was slowly advanced to regular diet. Of note on his CT abdomen pelvis he was found to have a left renal cell carcinoma and was seen by urology Dr. Hall who plans to do a robotic left partial nephrectomy once patient is more stable after this recent surgery. patient will follow-up with urology outpatient. As patient is clinically improved he was restarted on his home medications. Patient will follow-up with general surgery next week for staple removal, Urology in the near future after done dealing with this recent surgery, as well as PCP in a week. patient understands and agrees with plan. No new medications at this time. Patient's vitals stable, labs stable, patient is stable for discharge. Status at Discharge Functional status at discharge: independent ambulation Overall status at discharge: patient is back to baseline Time Spent with Patient Time attestation: Total time spent providing and/or coordinating discharge services:35 Time spent: Greater than 30 minutes Exam Narrative: Exam Narrative: - GENERAL: Well-nourished male in no acute distress. - EYES: EOMI. Anicteric. - HENT: [place]
--- NOTE | 2020-01-05 11:12 | PM.PNGS ---
Progress Note: A&P Assessment and Plan (1) SBO (small bowel obstruction): Code(s): K56.609 - Unspecified intestinal obstruction, unspecified as to partial versus complete obstruction Status: Acute Assessment and Plan: Patient continues to improve. Tolerating a regular diet with no further episodes of nausea/vomiting. Okay to discharge from a surgical standpoint. Follow-up in [address] Graf. No heavy lifting. Discussed d/c instructions with the patient and answered all questions. (2) Renal mass: Code(s): N28.89 - Other specified disorders of kidney and ureter Status: Acute (3) BMI 39.0-39.9,adult: Code(s): Z68.39 - Body mass index [BMI] 39.0-39.9, adult Status: Acute Additional Plan Discussed patient's plan of care with Dr. Graf. Subjective Subjective Date/Time Seen: 01/05/20 10:12 Post Op day: 7 Patient reports: no new complaints, feels better, tolerating a regular diet, flatus and bowel movement Interval history: Patient sitting in the chair this morning and reports doing well. He denies any abdominal pain or bloating. No nausea or vomiting since the one episode of vomiting Sunday night. Tolerating a regular diet. Reports flatus and two BMs last night. No other complaints at this time. Review of Systems Review of Systems: All systems reviewed & are unremarkable except as noted in HPI and below Constitutional: Constitutional: Denies chills and Denies fever(s) Cardiovascular: Cardiovascular: Denies chest pain and Denies dyspnea Respiratory: Respiratory: Reports no additional respiratory complaints, Denies cough and Denies dyspnea Gastrointestinal: Gastrointestinal: Reports as per HPI, Reports no additional gastrointestinal complaints, Denies abdominal pain and Denies vomiting Exam Const: General: healthy appearing, comfortable, no acute distress, alert and awake Orientation/consciousness: patient oriented x3 Resp: Effort & Inspection: normal respiratory effort and able to speak in complete sentences Auscultation: clear to auscultation bilaterally Cardio: Rate: regular rate Rhythm: regular rhythm GI: Inspection: non-distended and incision (clean, dry, kiel intact, no s/s infection) GI Palp: Yes Soft to palpation, No Tenderness to palpation present (GI), No Guarding due to palpation present (GI) and No Rebound tenderness present Auscultation: normal bowel sounds Skin: General skin exam: normal color Neuro: General: patient oriented x3 and moves all extremities Extrem: General: normal to inspection, no calf tenderness and edema right (mild RLE edema) Psych: Appearance: grossly normal Mental Status: mental status grossly normal Attitude: cooperative Thought process: Normal thought process present Objective Data Vital Signs Vital Signs: Vital Signs - 24 hr 01/04/20 14:00 01/04/20 18:00 01/04/20 20:08 Temperature 97.6 F 98.3 F Pulse Rate 65 85 83 Respiratory Rate 16 18 Blood Pressure 126/71 146/72 H Pulse Oximetry 96 94 01/04/20 21:30 01/05/20 02:00 01/05/20 06:00 Temperature 97.4 F L 97.5 F L 96.9 F L Pulse Rate 83 78 67 Respiratory Rate 16 16 16 Blood Pressure 113/82 121/79 134/74 Pulse Oximetry 98 96 98 01/05/20 10:00 Temperature 97.4 F L Pulse Rate 70 Respiratory Rate 16 Blood Pressure 143/77 H Pulse Oximetry 100 Intake/Output Intake/Output: Intake & Output 01/02/20 01/03/20 01/04/20 01/05/20 23:59 23:59 23:59 23:59 Intake Total 3990 3280 1210 780 Output Total 2250 2150 500 Balance 1740 1130 710 780 Meds/Results Medications: Active Medications Generic Name Dose Route Start Last Admin Trade Name Freq PRN Reason Stop Dose Admin Acetaminophen 650 mg 01/03/20 06:49 01/03/20 15:36 Acetaminophen 325 Mg Tablet PO 650 mg Q4H PRN Administration Mild Pain (1-3) or Fever Hydrocodone Bitart/Acetaminophen 1 tab 01/03/20 06:49 Hydrocodone/Acetaminophen (*Crx) 10-325 Mg Tablet PO Q4H PRN
== END 2020-01-05 12:26 | disposition home or self-care (01) | DRG 337 ==
LOC: ANHED 21:09 → ANH2MED 12-26 00:08
PROVIDERS: Emergency Medicine; Family Medicine; Hospitalist; Surgery; Admitting Provider Family Medicine; Emergency Provider Family Medicine; PCP Family Medicine; Visit Provider Student in an Organized Health Care Education/Training Program
PROC: 0DNW0ZZ Release Peritoneum, Open Approach (ICD-10-PCS; CPT 49000; principal; 2019-12-29 13:00)
DX: K56.52 Intestinal adhesions [bands] with complete obstruction (principal); I10 Essential (primary) hypertension; E78.5 Hyperlipidemia, unspecified; K56.7 Ileus, unspecified; N28.89 Other specified disorders of kidney and ureter; E80.6 Other disorders of bilirubin metabolism; E11.65 Type 2 diabetes mellitus with hyperglycemia
CPT/HCPCS: 36415; 74018; 74170; 74177; 74250; 80048; 80053; 82247; 83690; 85025; 85027; 99285; A9270; J0131; J0330; J0690; J1100; J1170; J1815; J2250; J2405; J2704; J2710; J2765; J3010; J7120; Q9967

== ENCOUNTER 2022-08-25 14:59 | Outpatient (CLI) | payer OTHER, SELFPAY ==
--- NOTE | ~2022-08-25 | CT_ITS ---
EXAMINATION: CT abdomen pelvis wo/w con DATE: 08/25/2022 15:42 INDICATION: Renal cell carcinoma TECHNIQUE: Computed tomography (CT) of the abdomen and pelvis was performed without and with 100 mL O mnipaque-350 intravenous contrast. Automated exposure control and iterative reconstruction technique were employed. The dose-length product was 2172.55 mGy-cm. COMPARISON: 12/28/19 FINDINGS: Discoid atelectasis in the right middle lobe and lingula. Heart size is normal. Small amount of ather osclerotic coronary artery calcific location along the right coronary artery. No pericardial or pleur al effusion. Cholecystectomy clips the gallbladder fossa. Liver, spleen, pancreas and bilateral adren al glands are normal. Bilateral small nonenhancing renal cysts the largest on the right measuring 1.2 cm. Suture line and cortical scarring at the interpolar region of the left kidney consistent with pr ior partial nephrectomy. Additional unchanged 5 mm partially exophytic lesion at the upper pole of th e left kidney with soft tissue density but without definitive additional enhancement on postcontrast imaging most likely proteinaceous/hemorrhagic cyst. Additional new 5 mm lesion more medially at the u pper pole of the left kidney which similarly appears greater than fluid attenuation but too small to definitively characterize. Bladder is normal. Normal appendix. Suture lines along a couple segments o f small bowel in the left abdomen. No bowel obstruction. No free intraperitoneal gas or fluid. No pat hologically enlarged abdominal or pelvic lymphadenopathy. Small fat-containing bilateral inguinal her nias, left greater than right. Moderate lumbar spondylosis. IMPRESSION: 1. Postoperative change of interval left partial nephrectomy with no evident residual, locally recurr ent or metastatic disease. 2. New 5 mm indeterminate lesion at the upper pole of the left kidney which is too small to definitiv nisreen characterize and no interval change in a 9 mm greater than simple fluid attenuation likely protei naceous/hemorrhagic cyst also at the upper pole of the left kidney which is without definitive enhanc ement on postcontrast imaging. Recommend continued attention on follow-up imaging. Reviewed, dictated and finalized at location B. IMPRESSION: 1. Postoperative change of interval left partial nephrectomy with no evident re sidual, locally recurrent or metastatic disease. 2. New 5 mm indeterminate lesion at the upper pole of the left kidney which is too small to definitively characterize and no interval change in a 9 mm greater than simple fluid attenuation likely proteinaceous/hemorrhagic cyst also at th e upper pole of the left kidney which is without definitive enhancement on post contrast imaging. Recommend continued attention on follow-up imaging.
--- NOTE | ~2022-08-25 | XR_ITS ---
EXAMINATION: XR chest 2V Exam Date/Time: 08/25/2022 15:20 CDT HISTORY: RENAL CELL CARCINOMA OF LEFT KIDNEY Comparison: 07/29/2012. RESULT: Lines, tubes, and devices: None. Lungs and pleura: Clear. Cardiomediastinal silhouette: Stable. Other: No acute osseous or upper abdominal finding. IMPRESSION: No acute cardiopulmonary process. Reviewed, dictated and finalized at location K.
[2022-08-25 15:34] LABS: Estimated Glomerular Filt Rate > 60
== END 2022-08-25 15:00 | disposition home or self-care (01) ==
PROVIDERS: PCP Family Medicine; Visit Provider Urology
DX: C64.2 Malignant neoplasm of left kidney, except renal pelvis (principal)
CPT/HCPCS: 71046; 74178; Q9967

== ENCOUNTER 2023-09-04 15:11 | Outpatient (CLI) | payer OTHER, SELFPAY ==
--- NOTE | ~2023-09-04 | CT_ITS ---
CT of the Abdomen and Pelvis: Indication: Left renal malignancy Technique: 2.5 mm axial scans were obtained through the abdomen and pelvis prior to and following in travenous administration of 100 cc of Omnipaque 350. Dose reduction technique was used on this scan b y utilizing automated exposure control and iterative reconstruction technique. The dose-length produc t (DLP) was 1695.33 mGy-cm. COMPARISON: 08/25/2022 Findings: Scans through the lung bases are unremarkable. The liver, spleen, pancreas, adrenals and right kidney are within normal limits. Cholecystectomy clip s present. There is postoperative change of the posterior aspect of the left kidney. There is a 8 mm indeterminate lesion of the left kidney (series 5 image 43). Small bilateral simple renal cysts are a lso present. No evidence of aortic aneurysm. No lymphadenopathy. No bowel obstruction or bowel wall thickening. There is no evidence to suggest acute appendicitis. Images through the pelvis were performed. Urinary bladder unremarkable. No pelvic mass seen. No ascit es. Impression: Postoperative change at the posterior aspect of the left kidney. 8 mm indeterminate lesion at the medial left kidney, as detailed above. Given small size, continued f ollow-up advised, versus pre and postcontrast MR to further evaluate. Reviewed, dictated and finalized at location M. Impression: Postoperative change at the posterior aspect of the left kidney. 8 mm indeterminate lesion at the medial left kidney, as detailed above. Given s mall size, continued follow-up advised, versus pre and postcontrast MR to community health er evaluate.
--- NOTE | ~2023-09-04 | XR_ITS ---
XR chest 2V Ordering provider: Rober Hall MD History: 63 years Male with . Malignant neoplasm of left kidney . Comparison: August 25, 2022 FINDINGS: MEDIASTINUM: The cardiac silhouette is not enlarged. LUNGS: No infiltrates, effusions or pneumothorax. OTHER: No free air under the diaphragm. Degenerative changes of the spine. IMPRESSION: No acute cardiopulmonary pathology. Reviewed, dictated and finalized at location A.
[2023-09-04 15:34] LABS: Estimated Glomerular Filt Rate > 60
== END 2023-09-04 15:12 ==
PROVIDERS: PCP Physician Assistant Medical; Visit Provider Urology
DX: C64.2 Malignant neoplasm of left kidney, except renal pelvis (principal); Z98.890 Other specified postprocedural states
CPT/HCPCS: 71046; 74178; Q9967

== ENCOUNTER 2023-09-28 15:16 | Outpatient (CLI) | payer OTHER, SELFPAY ==
--- NOTE | ~2023-09-28 | MR_ITS ---
EXAMINATION: MR abdomen wo/w con DATE: 09/28/2023 16:05 INDICATION: Malignant neoplasm of left kidney, except renal pelvis. TECHNIQUE: Magnetic resonance imaging (MRI) of the abdomen was performed without and with 20 mL Multi Wenceslao intravenous contrast. COMPARISON: CT abdomen and pelvis 09/04/2023 FINDINGS: There are cysts in the liver measuring up to 8 mm. The gallbladder is absent. The spleen, pancreas, a nd adrenal glands are normal. There are cysts in the kidneys measuring up to 17 mm on the right. Ther e are changes of partial left nephrectomy. There are two 10 mm masses in left kidney that may be none nhancing or hypoenhancing. There are no dilated loops of bowel. There are no pathologically enlarged lymph nodes. There is no free intraperitoneal fluid. IMPRESSION: 1. Two 10 mm masses in left kidney, which are most likely hemorrhagic cysts, but partial volume artif act decreases specificity. Consider abdomen MRI without and with contrast in 6 months. Reviewed, dictated and finalized at location A. IMPRESSION: 1. Two 10 mm masses in left kidney, which are most likely hemorrhagic cysts, bu t partial volume artifact decreases specificity. Consider abdomen MRI without a nd with contrast in 6 months.
== END 2023-09-28 15:17 ==
LOC: MICIMG 15:18
PROVIDERS: PCP Family Medicine; Visit Provider Urology
DX: C64.2 Malignant neoplasm of left kidney, except renal pelvis (principal); N28.89 Other specified disorders of kidney and ureter
CPT/HCPCS: 74183; A9577

== ENCOUNTER 2024-10-31 12:31 | Outpatient (CLI) | payer OTHER, SELFPAY ==
--- OUTSIDE RECORDS SUMMARY | 2006-05-24 10:20 | XMS_ITS | Continuity of Care Document ---
Author Organization [facility] Address [address] [place] [address] [address] [place] [address] Phone Care Team Providers Care Biometrics Consultant Name Role Phone Good OD, Ramón Unavailable Unavailable Procedures Procedure Date Eye Exam, New Patient Advance Directives Directive Yes / No Effective Date File Name No Information Encounters Encounter Description Practice Location Reason(s) For Visit Diagnoses Date Provider Providers Copied on Encounter [facility], [address], [place], [place], [id number], [place] tel:[phone] [facility] No Information 5-200 7 Good OD Ramón. [address] , [address], [place], [address], [place]. tel:[phone] Referring Provider: Darius Aden MD, [address], [address]. tel:[phone] Family History Family Member Type Diagnosis Age At Onset No Information Payers Payer name Insurance type Covered democrat ID Authoriza tion(s) [facility] Benefit Services CI [id number] Social History Type Description Quantity Date Captured Comments Sex Male Smoking Status No Information Chief Complaint And Reason For Visit No Information Reason For Referral Reason For Referral No Information History Of Present Illness Encounter Date Complaint History Of Prese nt Illness No Information Functional Status Date Functional Assessmen t No Information Instructions Date Instruction Additional Infor mation No Information Assessments Type Assessment Date No Information Patient Care Teams Name Effective Dates (start - stop) Status Members No Information
--- OUTSIDE RECORDS SUMMARY | 2024-03-03 10:10 | XMS_ITS ---
Author Organization [facility] Address [address] [place], [place] [id number] Care Team Providers Care Narrow Fabric Loom Fixer Name Role Phone URSULARAMO Garcia Unavailable [phone] Kelley Bruce Unavailable Unavailable Allergies No Known Allergies REASON FOR VISIT Patient presents for at-risk foot care . The patient has painful toenails and calluses that are causing difficulty with ambulation and shoegear. The onset is gradual Encounters Encounter Location Date Provider Diagnosis [facility] [address] [place], [place] [id number] 03/03/2024 RAMO QUINTANILLA Tinea unguium B35.1 ; Acquired keratosis [keratoderma] palmaris et plantaris L85.1 ; Pain in right toe(s) M79.674 ; Pain in left toe(s) M79.675 ; Atherosclerosis of twenty-nine palms arteries of extremities with intermittent claudication, bilateral legs I70.213 ; Type 2 diabetes mellitus with other circulatory complications E11.59 and Type 2 diabetes mellitus with other diabetic neurological complication E11.49 Assessments Encounter Date Diagnosis (ICD Code) Assessment Notes Treatment Notes Treatment Clinical Notes Section Notes 03/03/2024 Tinea unguium (ICD-10 - B35.1) Nails 1-5 Bilateral were debrided extensively with nail nippers and emery board, reducing length and girth to pink healthy tissue with any subungual debris and necrotic tissue removed 03/03/2024 Acquired keratosis [keratoderma] palmaris et plantaris (ICD-10 - L85.1) A total of 4 corns or calluses, as described in the note above, were cut and pared utilizing a #15 blade 03/03/2024 Pain in right toe(s) (ICD-10 - M79.674) 03/03/2024 Pain in left toe(s) (ICD-10 - M79.675) 03/03/2024 Atherosclerosis of twenty-nine palms arteries of extremities with intermittent claudication, bilateral legs (ICD-10 - I70.213) 03/03/2024 Type 2 diabetes mellitus with other circulatory complications (ICD-10 - E11.59) 03/03/2024 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.49) Plan Of Treatment Treatment Notes Assessment Notes Tinea unguium Nails 1-5 Bilateral were debrided extensively with nail nippers and emery board, reducing length and girth to pink healthy tissue with any subungual debris and necrotic tissue removed Acquired keratosis [keratode rma] palmaris et plantaris A total of 4 corns or calluses, as described in the note above, were cut and pared utilizing a #15 blade Next Appt Details Follow Up: 10 - 12 weeks, Re ason: At-Risk Foot care, sooner if problems develop. Provider Name:RAMO QUINTANILLA, 03:20:00 PM, [address], [address], [id number], Progress Notes * DAYLIN AHUMADADOB:1959 (64 yo M)Acc No.[id number]:03/03/2024 Patient: DAYLIN MARQUIS Provider: Kristie Quintanilla DPM :1960 A ge:64 Y S ex:Male Date:03/03/2024 Address:[address] [place], [place] [id number] Subjective: * Chief Complaints: * 1 . Patient presents for at-risk foot care . The patient has painful toenails and calluses that are causing difficulty with ambulation and shoegear. The onset is gradual. * HPI: H PI: General care P atient presents to the office for diabetic foot care. Patient states that their nails are thickened, elongated and painful. Patient states that it is aggravated by shoe gear. Onset is gradual., Patient denies taking blood thinners., Date last seen by Dr. Bruce was January 2024., Initials LB. * ROS: G eneral / Constitutional: Patient denies c hills, fever, weight loss. ? M usculoskeletal: Patient complains of H istory of Charcot, , arthritis. P eripheral Vascular: Patient denies p ain / cramping in legs after exertion, ulceration of feet. S kin: Patient complains of f ungal nails, nail changes, calluses and corns. N eurologic: Patient complains of b urning/ tingling, numbness. ? * Medical History: * Family History: F ather: PRN - Father: . M other: PRN - Mother: . M aternal Grandmother: MGRPRN - Maternal Grandmother: . B rother: SIB - Brother: . S ister: SIB - Sister: . * Social History: M igrated Social History: M igrated Social History: Smoking Status : Never smoked , History of tobacco use :. * Medications: N one * Allergies: N .K.D.A. Objective: * Vitals: * Examination: P hysical Examination: General appearance: A lert, pleasant, well-nourished and in no acute distress. D ermatologic: Skin findings: S kin is thin, atrophic and lacking pedal hair.. Hypertrophic / hyperkeratotic lesion: R ight foot: plantar aspect of the hallux, 3rd metatarsal head. Left foot: dorsal aspect of the 2nd, 3rd, and 4th toes. Nail pathology: N ails 1-5 bilateral are elongated, thick, discolored, and dystrophic with subungual debris. They are painful to palpation. ? V ascular: Dorsalis pedis pulse: 0 /4, bilateral. Posterior tibial pulse: 1 /4, bilaterally. Capillary refill: g reater than 3 seconds. Edema: N o edema bilateral. N eurologic: Gordo-Weinstin 5.07 monofilament a bsent sensorium to midfoot via 5.07g monofilament.. M usculoskeletal: Muscle Strength M uscle strength is 5/5 in regards to dorsiflexion, plantarflexion, inversion, and eversion in bilateral lower extremities. Foot Structure r ight foot has collapse of midfoot. ? Assessment: * Assessment: 1. T inea unguium - B35.1 (Primary) 2 . A cquired keratosis [keratoderma] palmaris et plantaris - L85.1 3 . P ain in right toe(s) - M79.674 ?4. P ain in left toe(s) - M79.675 5 . A therosclerosis of twenty-nine palms arteries of extremities with intermittent claudication, bilateral legs - I70.213 6 . T ype 2 diabetes mellitus with other circulatory complications - E11.59 7 . T ype 2 diabetes mellitus with other diabetic neurological complication - E11.49 Plan: * Treatment: 2. A cquired keratosis [keratoderma] palmaris et plantaris Notes: A total of 4 corns or calluses, as described in the note above, were cut and pared utilizing a #15 blade * Follow Up: 1 0 - 12 weeks (Reason: At-Risk Foot care, sooner if problems develop.) * Billing Information: * Visit Code: 26652 Office Visit, Est Pt., Level 3. * Procedure Codes: * Electronic signature of RAMO QUINTANILLA DPM on 10/31/2024 at 01:18 PM CDT Sign off status: Pending * Provider: Kristie Quintanilla DPM Date: 0 03/03/2024 Generated for Luisana hair/Deshaun/Ronni on: 0 10/31/2024 01:18 PM CDT History and Physical Notes * HPI (History of Present Illness) Category Sub-Category Detail Notes Category Not es HPI General care Patient presents to the office for diabetic foot care. Patient states that their nails are thickened, elongated and painful. Patient states that it is aggravated by shoe gear. Onset is gradual., Patient denies taking blood thinners., Date last seen by Dr. Bruce was January 2024., Initials LB Examination Category Sub-Category Detail Notes Category Not es Dermatologic Skin findings: Skin is thin, at rophic and lacking pedal hair. Nail pathology: Nails 1-5 bilateral are elongated, thick, discolored, and dystrophic with subungual debris. They are painful to palpation Hypertrophic / hyperkeratotic lesion: Ri ght foot: plantar aspect of the hallux, 3rd metatarsal head. Left foot: dorsal aspect of the 2nd, 3rd, and 4th toes Neurologic Gordo-Weinstin 5.07 monofilamen t absent sensorium to midfoot via 5.07g monofilament. Vascular Dorsalis pedis pulse: 0/4, bilateral Edema: No edema bilateral Capillary refill: greater than 3 secon ds Posterior tibial pulse: 1/4, bilaterally Physical Examination General appearance: Alert, pleasant, well-nourished and in no acute distress Musculoskeletal Muscle Strength Muscle strength is 5/5 in regards to dorsiflexion, plantarflexion, inversion, and eversion in bilateral lower extremities Foot Structure right foot has colla pse of midfoot
--- NOTE | ~2024-10-31 | XR_ITS ---
EXAMINATION: XR chest 2V, 10/31/2024 12:40 CDT HISTORY: renal mass FOLLOW UP COMPARISON: No comparisons available. Technique: 2 views obtained. Findings: The lungs are clear, no effusion. No pneumothorax. Heart is normal size. Mediastinal and hilar contours are within normal limits. Bony thorax no acute abnormality. Impression: No acute cardiopulmonary abnormality. Reviewed, dictated and finalized at location A. Impression: No acute cardiopulmonary abnormality.
--- OUTSIDE RECORDS SUMMARY | 2024-10-31 13:19 | XMS_ITS | Clinical Summary ---
Author Organization [facility] Address [address] [place] [address] Care Team Providers Care Vertical Boring Mill Operator Name Role Phone Unknown, Notinfile Primary Care Provider Unavail able Herbert Mendoza MD Unavailable [phone] Allergies No known active allergies Medications losartan (COZAAR) 100 mg tablet Take 100 mg by mouth daily Active hydroCHLOROthia zide (HYDRODIURIL) 25 mg tablet Take 25 mg by mouth daily Active atorvastatin (LIPITOR) 40 mg tablet Take 40 mg by mouth daily Active METOPROLOL TARTRATE ORAL Take 50 mg by mouth 2 (two) times a day Active furosemide (LASIX) 20 mg tablet Take 20 mg by mouth daily Active metFORMIN (GLUCOPHAGE) 500 mg tablet Take 1,000 mg by mouth 2 (two) times a day with meals Active empagliflozin (JARDIANCE) 25 mg tabletIndicatio ns:type 2 diabetes mellitus Take 25 mg by mouth daily Active insulin glargine U-300 conc 300 unit/mL (1.5 mL) insulin pen Inject 18 Units under the skin daily Active insulin glargine U-300 conc 300 unit/mL (1.5 mL) insulin pen Inject 20 mg under the skin nightly Active semaglutide (Ozempic) 0.25 mg or 0.5 mg(2 mg/1.5 mL) pen injectorIndicat ions:on sunday Inject 0.5 mg under the skin every 7 days Active sildenafiL (VIAGRA) 100 mg tablet Take 50-100 mg by mouth daily as needed for erectile dysfunction Active HYDROcodone-edwin taminophen (NORCO) 5-325 mg per tabletIndicatio ns:Pain Take 1 tablet by mouth every 4 (four) hours as needed for pain 30 tablet Active Active Problems Problem Noted Date Diagnosed Date Malignant neoplasm of left kidney, except renal pelvis 03/16/2020 Overview (03/16/2020): Added automatically from request for surgery [id number] History of surgical procedure 07/26/2015 Late effect of fracture of lower extremity 01/18 Immunizations Immunization Administration Dates Next Due Influenza, Quadrivalent, Spl it, Preservative Free, Intramuscular 04/06/2020 Surgical History Surgery Date Site/Laterality Comments FRACTURE SURGERY 02/20/2012 - 02/18/2013 Right tib/fib fracture repair CHOLECYSTECTOMY 02/20/2016 - 02/18/2017 ABDOMINAL SURGERY 02/19/1999 - 02/19/2000 ABDOMINAL SURGERY 02/19/2019 - 02/19/2020 scar tissue/intestinal blockage from previous abdominal surgery Medical History Medical History Date Comments Malignant neoplasm of left kidney (HCC) Obesity BMI 36 HTN (hypertension) HLD (hyperlipidemia) Sleep apnea DM (diabetes mellitus) Malignant neoplasm of left kidney (HCC) Social History Tobacco Use Types Packs/Day Years Used Date Smoking Tobacco: Never Smokeless Tobacco: Never Alcohol Use Standard Drinks/Week Comments Never 0 (1 standard drink = 0.6 oz pur e alcohol) AUDIT-C Answer Date Recorded Q1: How often do you have a drink containing alc ohol? Never 03/29/2020 Average Number of Drinks Not on file 021 Frequency of Binge Drinking Not on file 09/2020 Personal Safety Answer Date Recorded Getting School Help Needed Not on file 05/03 Sex and Gender Information Value Date Recorded Sex Assigned at Not on file Legal Sex Male 5:10 AM FINANCIAL SERVICES MANAGER Gender Identity Not on file Sexual Orientation Not on file Obstetrics History Last Filed Vital Signs Vital Sign Reading Time Taken Comments Blood Pressure 156/93 04/06/2020 12:25 PM FINANCIAL SERVICES MANAGER Pulse 75 04/06/2020 12:25 PM FINANCIAL SERVICES MANAGER Temperature 36.7 C (98.1 F) 04/06/2020 12:25 PM FINANCIAL SERVICES MANAGER Respiratory Rate 18 04/06/2020 12:2 5 PM FINANCIAL SERVICES MANAGER Oxygen Saturation 96% 04/06/2020 12: 25 PM FINANCIAL SERVICES MANAGER Inhaled Oxygen Concentration - - Weight 123.1 kg (271 lb 6.2 oz) 04/02/2020 6:15 AM FINANCIAL SERVICES MANAGER Height 188 cm (6' 2.02) 04/02/2020 6:15 AM FINANCIAL SERVICES MANAGER Body Mass Index 34.83 04/02/2020 6:15 AM FINANCIAL SERVICES MANAGER Plan of Treatment Not on file Medical Devices Implanted Type Area Cloth Sponger Device Identifier Shelf Expiration Date Model / Serial / Lot Mark + 10 Screws Right: Leg Insurance [facility] CHOICE PLUS CHOICE PLUS Advance Directives For more information, please contact: [phone] * Full Code (Latest Code Status on File) Date Activated Date Inactivated Comments 04/03/2020 12:42 AM 04/04/2020 9:53 AM * Full Code Date Activated Date Inactivated Comments 04/02/2020 2:50 PM 04/03/2020 12:42 AM Care Teams Vertical Boring Mill Operator Relationship Specialty Start Date End Date Unknown, Notinfile PCP - General 04/02/20 [place] [id number] [place] [id number] Consulting Physician Urology 04/02/20
--- OUTSIDE RECORDS SUMMARY | 2024-10-31 13:19 | XMS_ITS | Clinical Summary ---
Author Organization [facility] Address [address], [address] [address] Phone Care Team Providers Care Shoemaker Apprentice Name Role Phone Darius Aden MD Primary Care Provider [phone] Ramón Gavin DO Unavailable [phone] Allergies No known active allergies Medications insulin glargine (LANTUS) 100 UNIT/ML Solution 35 Units by Subcutaneous route every evening. Active Pioglitazone HCl-Metformin HCl 15-850 MG Tablet Take 1 Tab by mouth 2 times daily (with meals). Active glimepiride (AMARYL) 4 MG Tablet Take 8 mg by mouth daily. Active losartan potassium-hydro chlorothiazide (HYZAAR) 100-25 MG Tablet Take 1 Tab by mouth daily. Active doxazosin (CARDURA) 2 MG Tablet Take 2 mg by mouth every evening. Active Social History Tobacco Use Types Packs/Day Years Used Date Smoking Tobacco: Never Smokeless Tobacco: Never Alcohol Use Standard Drinks/Week Comments No 0 (1 standard drink = 0.6 oz pur e alcohol) Sex and Gender Information Value Date Recorded Sex Assigned at Not on file Legal Sex Male 7:39 PM CDT Gender Identity Not on file Sexual Orientation Not on file Plan of Treatment Health Maintenance Due Date Last Done Comments Hepatitis C Virus (HCV) Screening 1960 TdaP Immunization 1960 Cologuard 2006 Immunochemical Fecal Occult Blood 2006 Pneumococcal Immunization (5 0+ years) (1 of 1 - PCV) 2011 Zoster Immunization (1 of 2) 2011 SARS-COV-2 Immunization ( - season) 2023 Influenza Immunization (#1) 2024 Colonoscopy 08/17/2025 08/18/2015 Colorectal Cancer Screening 08/17/2025 Respiratory Syncytial Virus (RSV) Immunization (Adult) (1 - 1-dose 75+ series) 01/30/2036 Hepatitis B Immunization Aged Out No longer eligible based on patient's age to complete this topic Human Papillomavirus (HPV) Immunization Aged Out No longer eligible b ased on patient's age to complete this topic Meningococcal Immunization (ACWY) Aged Out No longer eligible based on patient's age to complete this topic Rotavirus Immunization Aged Out No lo nger eligible based on patient's age to complete this topic Procedures Procedure Name Priority Date/Time Associated Diagnosis Comments COLONOSCOPY Routine 08/18/2015 from Last 3 Months or Most Recently Relevant to Health Maintenance Results * COLONOSCOPY (08/18/2015) Darius Aden MD PROCEDURE/MINOR SURGICAL BRUNO BONILLA Final Result from Last 3 Months or Most Recently Relevant to Health Maintenance Care Teams Shoemaker Apprentice Relationship Specialty Start Date End Date Darius Aden MD [address] [place] [id number] PCP - General Family Medicine 08/25/15 Ramón Gavin DO [address] [place] [id number] Gastroenterology 08/25/15
--- OUTSIDE RECORDS SUMMARY | 2024-10-31 13:19 | XMS_ITS | Patient Health Record ---
Author Organization [facility] Address [address] [place], [place] [id number] Care Team Providers Care Maintainability Engineer Name Role Phone CANDIDA QUINTANILLAIC Unavailable [phone] Kelley Bruce Unavailable Unavailable Allergies No Known Allergies Reason For Referral No Information Immunizations Vaccine Route Administration Date Status Comme nts Influenza, high dose seasonal Unknown 2023 Admini stered Influenza, high dose seasonal Unknown 01/21/2024 Admini stered Pneumococcal conjugate PCV 13 Unknown 05/07/2023 Refuse d Vital Signs Height-cm 187.96 cm 09/01/2024 Weight-kg 131.54 kg 09/01/2024 Height 74.00 in 09/01/2024 Weight 290 lbs 09/01/2024 BMI 37.23 kg/m2 09/01/2024 Encounters Encounter Location Date Provider Diagnosis [facility] [address] [place], [place] [id number] 03/03/2024 RAMO QUINTANILLA Tinea unguium B35.1 ; Acquired keratosis [keratoderma] palmaris et plantaris L85.1 ; Pain in right toe(s) M79.674 ; Pain in left toe(s) M79.675 ; Atherosclerosis of kiana arteries of extremities with intermittent claudication, bilateral legs I70.213 ; Type 2 diabetes mellitus with other circulatory complications E11.59 and Type 2 diabetes mellitus with other diabetic neurological complication E11.49 [facility] [address] [place], [place] [id number] 12/31/2023 RAMO SNOOK Tinea unguium B35.1 ; Acquired keratosis [keratoderma] palmaris et plantaris L85.1 ; Pain in right toe(s) M79.674 ; Pain in left toe(s) M79.675 ; Atherosclerosis of kiana arteries of extremities with intermittent claudication, bilateral legs I70.213 ; Type 2 diabetes mellitus with other circulatory complications E11.59 and Type 2 diabetes mellitus with other diabetic neurological complication E11.49 [facility] [place] [address] [place] [id number] 06/02/2024 RAMO SNOOK Tinea unguium B35.1 ; Acquired keratosis [keratoderma] palmaris et plantaris L85.1 ; Pain in right toe(s) M79.674 ; Pain in left toe(s) M79.675 ; Atherosclerosis of kiana arteries of extremities with intermittent claudication, bilateral legs I70.213 ; Type 2 diabetes mellitus with other circulatory complications E11.59 and Type 2 diabetes mellitus with other diabetic neurological complication E11.49 [facility] [place] [address] [place] [id number] 09/01/2024 RAMO SNOOK Tinea unguium B35.1 ; Acquired keratosis [keratoderma] palmaris et plantaris L85.1 ; Pain in right toe(s) M79.674 ; Pain in left toe(s) M79.675 ; Atherosclerosis of kiana arteries of extremities with intermittent claudication, bilateral legs I70.213 ; Type 2 diabetes mellitus with other circulatory complications E11.59 and Type 2 diabetes mellitus with other diabetic neurological complication E11.49 Assessments Encounter Date Diagnosis (ICD Code) Assessment Notes Treatment Notes Treatment Clinical Notes Section Notes 12/31/2023 Tinea unguium (ICD-10 - B35.1) Nails 1-5 Bilateral were debrided extensively with nail nippers and emery board, reducing length and girth to pink healthy tissue with any subungual debris and necrotic tissue removed 12/31/2023 Acquired keratosis [keratoderma] palmaris et plantaris (ICD-10 - L85.1) A total of 4 corns or calluses, as described in the note above, were cut and pared utilizing a #15 blade 03/03/2024 Tinea unguium (ICD-10 - B35.1) Nails [...] cut and pared utilizing a #15 blade 06/02/2024 Tinea unguium (ICD-10 - B35.1) Nails 1-5 Bilateral were debrided extensively with nail nippers and emery board, reducing length and girth to pink healthy tissue with any subungual debris and necrotic tissue removed 06/02/2024 Acquired keratosis [keratoderma] palmaris et plantaris (ICD-10 - L85.1) A total of 4 corns or calluses, as described in the note above, were cut and pared utilizing a #15 blade 09/01/2024 Tinea unguium (ICD-10 - B35.1) Nails 1-5 Bilateral were debrided extensively with nail nippers and emery board, reducing length and girth to pink healthy tissue with any subungual debris and necrotic tissue removed 09/01/2024 Acquired keratosis [keratoderma] palmaris et plantaris (ICD-10 - L85.1) A total of 4 corns or calluses, as described in the note above, were cut and pared utilizing a #15 blade 09/01/2024 Pain in right toe(s) (ICD-10 - M79.674) 06/02/2024 Pain in right toe(s) (ICD-10 - M79.674) 03/03/2024 Pain in right toe(s) (ICD-10 - M79.674) 12/31/2023 Pain in right toe(s) (ICD-10 - M79.674) 12/31/2023 Pain in left toe(s) (ICD-10 - M79.675) 03/03/2024 Pain in left toe(s) (ICD-10 - M79.675) 06/02/2024 Pain in left toe(s) (ICD-10 - M79.675) 09/01/2024 Pain in left toe(s) (ICD-10 - M79.675) 09/01/2024 Atherosclerosis of kiana arteries of extremities with intermittent claudication, bilateral legs (ICD-10 - I70.213) 06/02/2024 Atherosclerosis of kiana arteries of extremities with intermittent claudication, bilateral legs (ICD-10 - I70.213) 12/31/2023 Atherosclerosis of kiana arteries of extremities with intermittent claudication, bilateral legs (ICD-10 - I70.213) 03/03/2024 Atherosclerosis of kiana arteries of extremities with intermittent claudication, bilateral legs (ICD-10 - I70.213) 03/03/2024 Type 2 diabetes mellitus with other circulatory complications (ICD-10 - E11.59) 12/31/2023 Type 2 diabetes mellitus with other circulatory complications (ICD-10 - E11.59) 06/02/2024 Type 2 diabetes mellitus with other circulatory complications (ICD-10 - E11.59) 09/01/2024 Type 2 diabetes mellitus with other circulatory complications (ICD-10 - E11.59) 09/01/2024 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.49) 06/02/2024 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.49) 03/03/2024 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.49) 12/31/2023 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.49) Plan Of Treatment Next Appt Details Provider Name:RAMO QUINTANILLA, 03:20:00 PM, [address], [facility], [place], [place], [id number], Insurance Providers Payer Name Payer Address Payer Phone Subscriber Number Group Number Insured Name Patient Relationship to Insured Coverage Start Date Coverage End Date [facility] [address] [address] [place] [id number] DAYLIN AHUMADA Self - patient is the insured Medical (General) History Medical History History ICD Code Diabetic
--- OUTSIDE RECORDS SUMMARY | 2024-10-31 13:19 | XMS_ITS | Clinical Summary ---
Author Organization [facility] Address [facility] [place] [address] Care Team Providers Care Ict Analyst Name Role Phone Unavailable Primary Care Provider Unavailabl e Social History Tobacco Use Types Packs/Day Years Used Date Smoking Tobacco: Never Assessed Sex and Gender Information Value Date Recorded Sex Assigned at Not on file Legal Sex Male 9:53 PM CDT Gender Identity Not on file Sexual Orientation Not on file Plan of Treatment Health Maintenance Due Date Last Done Comments Colorectal Cancer Screening Colonoscopy (10 Years) 1961 Annual Physical 01/30/1964 Hepatitis C 1979 Pneumococcal Vaccine: 50+ Years (1 of 1 - PCV) 2011 Zoster Vaccines (1 of 2) 2011 COVID-19 Vaccine (1 - 2023-2 5 season) 2024 DTaP, Tdap and Td Vaccines ( 2 - Td or Tdap) 05/19/2025 05/20/2015, 12/17/2002 RSV Immunization or 60+ Years (1 - 1-dose 75+ series) 01/30/2036 Meningococcal B Vaccine Aged Out No l onger eligible based on patient's age to complete this topic Meningococcal Vaccine Aged Out No bandar emerson eligible based on patient's age to complete this topic RSV Immunizations Under 20 Months Aged Out No longer eligible b ased on patient's age to complete this topic
== END 2024-10-31 12:32 | disposition home or self-care (01) ==
PROVIDERS: PCP Family Medicine; Visit Provider Urology
DX: N28.89 Other specified disorders of kidney and ureter (principal)
CPT/HCPCS: 71046